=== PATIENT | male | born 1965 | race Caucasian/White ===

== ENCOUNTER 2018-12-17 15:56 | Emergency (ER) | payer BC, SELFPAY ==
--- OUTSIDE RECORDS SUMMARY | 2018-12-17 15:58 | XMS REPORT | Clinical Summary ---
:1965 Author Organization [facility] Address [address] [place] [address] Care Team Providers Name Role Phone Mayra Ramirez Primary Care Provider Allergies No Known Allergies Medications Medication Sig Dispensed Refills Start Date End Date Status lisinopril Take 40 mg by 0 Active (PRINIVIL,ZESTRIL) 40 MG mouth daily. tablet VITAMIN A ORAL Take 25,000 0 Active Units by mouth daily. OMEGA-3S/DHA/EPA/FISH Take 1,000 mg by 0 Active OIL (OMEGA 3 ORAL) mouth daily. ASCORBATE CALCIUM Take 2,000 mg by 0 Active (VITAMIN C ORAL) mouth daily. MULTIVITAMIN ORAL Take 15 mL by 0 Active mouth. INSULIN SUBCUTANEOUS Inject 8 Units 0 Active PUMP, NOVOLOG, 100 under the skin UNIT/ML INSULIN PUMP continuously. INFUSION (NovoLOG) carvedilol (COREG) 12.5 Take 12.5 mg by 0 Active MG tablet mouth 2 (two) times a day with meals. zolpidem (AMBIEN) 10 mg Take 10 mg by 0 Active tablet mouth nightly as needed for sleep. DULoxetine (CYMBALTA) 60 Take 60 mg by 0 Active MG capsule mouth 2 (two) times a day. TiZANidine (ZANAFLEX) 6 0 05/22/2016 Active MG capsule sertraline (ZOLOFT) 100 0 06/29/2016 Active MG tablet gabapentin (NEURONTIN) 0 06/29/2016 Active 300 mg capsule cyclobenzaprine 0 06/29/2016 Active (FLEXERIL) 10 mg tablet chlordiazepoxide-clidini 0 04/11/2016 Active um (LIBRAX) 5-2.5 mg per capsule Active Problems No known active problems Social History Tobacco Use Types Packs/Day Years Used Date Never Smoker Smokeless Tobacco: Never Used Alcohol Use Drinks/Week oz/Week Comments No Sex Assigned at Date Recorded Not on file Job Start Date Occupation Industry Not on file Not on file Not on file Travel History Travel Start Travel End No recent travel history available. Last Filed Vital Signs Not on file Plan of Treatment Health Maintenance Due Date Last Done Comments COLONOSCOPY SCREENING 2017 SHINGLES VACCINES (#1) 2017 INFLUENZA VACCINE 01/23/2019 Results Not on fileafter 12/16/2017 (Home) [place] [address] Advance Directives Patient has advance care planning documents on file. For more information, please contact:Maynor Jefferson[address] [place] [address]
[2018-12-17 16:54] LABS: Absolute Lymphocytes (CBC) 1.1 K/uL (0.7-4.9); Basophils % 0.6 % (0-1.3); Eosinophils % 3.6 % (0-4.4); Hematocrit 37.2 % (39.6-49.0); MPV 7.6 fL (7.6-11.3); Monocytes % 9.8 % (3.3-12.3); RBC Red Blood Cell Count 4.37 M/uL (4.33-5.43)
[2018-12-17] MEDS ORDERED: NA CHLORIDE 0.9% 1,000 ML ONE (17:00)
--- NOTE | 2018-12-17 17:08 | RAD REPORT ---
EXAM DESCRIPTION: CT - CTHCSPWOC - 12/17/2018 4:57 pm CLINICAL HISTORY: Trauma, head and neck injury. fall, head/face injury COMPARISON: No comparisons TECHNIQUE: Axial 5 mm thick images of the head were obtained. Axial 2 mm thick images of the cervical spine were obtained with sagittal and coronal reconstruction images generated and reviewed. All CT scans are performed using dose optimization technique as appropriate and may include automated exposure control or mA/KV adjustment according to patient size. FINDINGS: CT HEAD WITHOUT CONTRAST: No acute hemorrhage, hydrocephalus or extra-axial collection is identified.No areas of brain edema or midline shift. Multifocal mild mucoperiosteal thickening is seen involving the paranasal sinuses.The calvarium is in tact. CT CERVICAL SPINE WITHOUT CONTRAST: No fracture or subluxation.Mild lower cervical spondylosis.No prevertebral soft tissues swelling is i dentified. IMPRESSION: No acute intracranial or cervical spine findings.
--- NOTE | 2018-12-17 17:11 | RAD REPORT ---
EXAM DESCRIPTION: CT - CTFB CLINICAL HISTORY: FACIAL PAIN Trauma, facial pain and swelling. COMPARISON: No comparisons TECHNIQUE: Axial 2 mm thick images of the face were obtained with sagittal and coronal reconstructio n images. All CT scans are performed using dose optimization technique as appropriate and may include automated exposure control or mA/KV adjustment according to patient size. FINDINGS: Mild acute nasal bone fractures are present bilaterally.No additional facial prone fractur e is seen.The mandible is intact. The globes and orbital contents are grossly unremarkable.Mild mucoperiosteal thickening of the parana ludy sinuses present. IMPRESSION: Mild acute nasal bone fractures.
[2018-12-17 17:13] LABS: BUN Blood Urea Nitrogen 19 mg/dL (7-18); Bicarbonate 27 mmol/L (21-32); Glucose Level 345 mg/dL (74-106); Potassium 5.1 mmol/L (3.5-5.1); Sodium Level 137 mmol/L (136-145)
--- NOTE | 2018-12-17 17:16 | RAD REPORT ---
EXAM DESCRIPTION: RAD - Shoulder Right 2 View - 12/17/2018 5:10 pm CLINICAL HISTORY: fall;Pain COMPARISON: No comparisons FINDINGS: No acute fracture or dislocation is appreciated. An old Hill-Sachs deformity is suspected.
--- NOTE | 2018-12-17 17:44 | EDPHYS ---
Physician Documentation [facility] Name: Wilberto Liriano Age: 53 yrs Sex: Male : 1965 Arrival Date: 12/17/2018 Time: 16:02 Bed 16 Private MD: ED Physician Adi Rehman HPI: 12/17 16:37 This 53 yrs old Male presents to ER via EMS with complaints of Fall Injury. rn 16:37 Details of fall: The patient fell from an upright position, while walking. Onset: The rn symptoms/episode began/occurred just prior to arrival. Associated injuries: The patient sustained injury to the head. Severity of symptoms: At their worst the symptoms were mild, in the emergency department the symptoms are unchanged. The patient has experienced similar episodes in the past. Reports falls a lot, mother thinks is because he takes too much medication. Patient with chronic back pain and sciatica, takes muscle relaxers, gabapentin, seroquel, and tylenol#3. Reports today walking, fell forward, hit face/head, no LOC, remembers all events, + generalized weakness. Reports facial pain and right shoulder pain. . Historical: - Allergies: 15:51 No Known Allergies; rb1 - Home Meds: 15:51 Novalog 5-10 ml per day [Active]; valsartan 160 mg oral tab 1 tab once daily [Active]; rb1 ferrous gluconate 324 mg (38 mg iron) Oral tab daily [Active]; carvedilol 25 mg oral tab 1 tab 2 times per day [Active]; montelukast 10 mg oral tab 1 tab once daily [Active]; 15:51 tizanidine 4 mg oral tab 1 tab twice a day [Active]; gabapentin 600 mg oral tab 1 tab rb1 twice a day [Active]; quetiapine 400 mg oral tab 2 tab once daily [Active]; - PMHx: 16:10 Diabetes - IDDM; Hypertension; pancreas problems; rb1 - PSHx: 16:10 Cholecystectomy; Gastric Bypass; rb1 - Immunization history:: Adult Immunizations up to date. - Social history:: Smoking status: Patient/guardian denies using tobacco. - Ebola Screening: : Patient negative for fever greater than or equal to 101.5 degrees Fahrenheit, and additional compatible Ebola Virus Disease symptoms. - Family history:: not pertinent. - Hospitalizations: : No recent hospitalization is reported. ROS: 16:39 Constitutional: Negative for fever, chills, and weight loss, Eyes: Negative for injury, rn pain, redness, and discharge, Cardiovascular: Negative for chest pain, palpitations, and edema, Respiratory: Negative for shortness of breath, cough, wheezing, and pleuritic chest pain, Abdomen/GI: Negative for abdominal pain, nausea, vomiting, diarrhea, and constipation, MS/Extremity: Negative for injury and deformity, Skin: Negative for injury, rash, and discoloration, Neuro: Negative for headache, weakness, numbness, tingling, and seizure. Exam: 16:39 Constitutional: This is a well developed, well nourished patient who is awake, alert, rn and in no acute distress. Head/Face: + nasal abrasion Eyes: Bilateral pupils constricted ENT: No oral trauma, no active nosebleed Neck: In ccollar, no midline tenderness Chest/axilla: Normal chest wall appearance and motion. Nontender with no deformity. No lesions are appreciated. Cardiovascular: Regular rate and rhythm, No pulse deficits. Respiratory: Lungs have equal breath sounds bilaterally, clear to auscultation. No increased work of breathing, no retractions or nasal flaring. Abdomen/GI: soft, non-tender Back: No spinal tenderness. No costovertebral tenderness. Full range of motion. Skin: Warm, dry, no evidence of cellulitis. MS/ Extremity: Pulses equal, no cyanosis. Neurovascular intact. Full, normal range of motion. Equal circumference. Neuro: Awake and alert, GCS 15, oriented to person, place, time, and situation. Cranial nerves II-XII grossly intact. Motor strength 4/5 in all extremities. Sensory grossly intact. Vital Signs: 15:51 BP 128 / 82; Pulse 65; Resp 19; Temp 98.8(O); Pulse Ox 97% on R/A; Weight 79.38 kg (R); rb1 Height 5 ft. 3 in. (160.02 cm) (R); Pain 10/10; 16:45 BP 132 / 71; Pulse 66; Resp 20; Temp 98.7(O); Pulse Ox 98% on R/A; Pain 10/10; rb1 17:45 BP 121 / 74; Pulse 62; Resp 17; Temp 98.6(O); Pulse Ox 97% on R/A; Pain 10/10; rb1 18:29 BP 125 / 75; Pulse 63; Resp 19; Temp 98.1(O); Pulse Ox 100% on R/A; Pain 10/10; rb1 15:51 Body Mass Index 31.00 (79.38 kg, 160.02 cm) rb1 Sanborn Coma Score: 15:51 Eye Response: spontaneous(4). Verbal Response: oriented(5). Motor Response: obeys rb1 commands(6). Total: 15. Trauma Score (Adult): 15:51 Eye Response: spontaneous(1); Verbal Response: oriented(1); Motor Response: obeys rb1 commands(2); Systolic BP: > 89 mm Hg(4); Respiratory Rate: 10 to 29 per min(4); Sanborn Score: 15; Trauma Score: 12 MDM: 16:20 Patient medically screened. rn 17:41 Differential diagnosis: abrasion, closed head injury, contusion, fracture, sprain, rn strain. Data reviewed: vital signs, nurses notes, lab test result(s), radiologic studies, CT scan, plain films, and as a result, I will discharge patient. Counseling: I had a detailed discussion with the patient and/or guardian regarding: the historical points, exam findings, and any diagnostic results supporting the discharge/admit diagnosis, lab results, radiology results, the need for outpatient follow up, to return to the emergency department if symptoms worsen or persist or if there are any questions or concerns that arise at home. Response to treatment: the patient's symptoms have markedly improved after treatment, and as a result, I will discharge patient. ED course: Patient much more alert, negative ct head/cspine, + nasal bone fracture, will dc home with ENT f/u, given fluids for dehydration, neg ketones, no AG. Talked to patient and family member regarding possible over medication due to recurrent falls, chronic pain, and multiple sedative medications.. 12/17 16:32 Order name: CBC with Diff; Complete Time: 17:09 rn 12/17 16:32 Order name: Basic Metabolic Panel; Complete Time: 17:41 rn 12/17 16:32 Order name: CT Head C Spine; Complete Time: 17:12 rn 12/17 16:33 Order name: Ketone, Serum; Complete Time: 17:41 rn 12/17 17:21 Order name: Glucose, Ancillary Testing; Complete Time: 17:26 EDMS 12/17 16:32 Order name: IV Start; Complete Time: 16:47 rn 12/17 16:32 Order name: CT Facial Bones W/O Con; Complete Time: 17:26 rn 12/17 16:32 Order name: XRAY Shoulder RIGHT 2 view; Complete Time: 17:26 rn 12/17 16:32 Order name: EKG; Complete Time: 16:33 rn 12/17 16:32 Order name: EKG - Nurse/Tech; Complete Time: 17:50 rn 12/17 16:33 Order name: Glucose Level; Complete Time: 17:50 rn Administered Medications: 17:00 Drug: NS 0.9% 1000 ml Route: IV; Rate: 1000 ml; Site: left antecubital; rb1 18:30 Follow up: IV Status: Completed infusion rb1 Point of Care Testing: Blood Glucose: 17:54 Blood Glucose: 294 mg/dL; mh5 Ranges: Critical Glucose Levels:Adult <50 mg/dl or >400 mg/dl <40 mg/dl or >180 mg/dl Disposition: 12/17/18 17:43 Discharged to Home. Impression: Fracture of nasal bones, Hyperglycemia, unspecified, Dehydration, Superficial injury of head. - Condition is Stable. - Discharge Instructions: Dehydration, Adult, Head Injury, Adult, Hyperglycemia, Nasal Fracture. - Medication Reconciliation Form, Thank You Letter, Antibiotic Education, Prescription Opioid Use, Work release form form. - Follow up: Rosaura Ott; When: As needed; Reason: Recheck today's complaints, Re-evaluation by your physician. - Problem is new. - Symptoms have improved. Signatures: Dispatcher [employer] [facility] Adi Rehman MD MD rn Barber, Rebecca, RN RN rb1 Corrections: (The following items were deleted from the chart) 16:39 16:37 Reports falls a lot, mother thinks is because he takes too much medication. rn Patient with chronic back pain and sciatica, takes muscle relaxers, gabapentin, seroquel, and tylenol#3. . rn 16:45 16:39 Constitutional: This is a well developed, well nourished patient who is awake, rn alert, and in no acute distress. Head/Face: + nasal abrasion Eyes: Bilateral pupils constricted ENT: No oral trauma, no active nosebleed Neck: In ccollar, no midline tenderness Chest/axilla: Normal chest wall appearance and motion. Nontender with no deformity. No lesions are appreciated. Cardiovascular: Regular rate and rhythm, No pulse deficits. Respiratory: Lungs have equal breath sounds bilaterally, clear to auscultation. No increased work of breathing, no retractions or nasal flaring. Abdomen/GI: soft, non-tender Skin: Warm, dry, no evidence of cellulitis. MS/ Extremity: Pulses equal, no cyanosis. Neurovascular intact. Full, normal range of motion. Equal circumference. Neuro: Awake and alert, GCS 15, oriented to person, place, time, and situation. Cranial nerves II-XII grossly intact. Motor strength 4/5 in all extremities. Sensory grossly intact. rn 17:40 16:39 ACETAMINOPHEN+C.LAB.BRZ ordered. EDCT EDMS 18:37 17:43 12/17/2018 17:43 Discharged to Home. Impression: Fracture of nasal bones; rb1 Hyperglycemia, unspecified; Dehydration; Superficial injury of head. Condition is Stable. Discharge Instructions: Dehydration, Adult, Head Injury, Adult, Hyperglycemia, Nasal Fracture. Forms are Medication Reconciliation Form, Thank You Letter, Antibiotic Education, Prescription Opioid Use. Follow up: Rosaura Ott; When: As needed; Reason: Recheck today's complaints, Re-evaluation by your physician. Problem is new. Symptoms have improved. rn
--- NOTE | 2018-12-17 17:44 | ER ---
Nurse's Notes [facility] Name: Wilberto Liriano Age: 53 yrs Sex: Male : 1965 Arrival Date: 12/17/2018 Time: 16:02 Bed 16 Private MD: Diagnosis: Fracture of nasal bones;Hyperglycemia, unspecified;Dehydration;Superficial injury of head Presentation: 12/17 15:51 Presenting complaint: EMS states: Pt. fell from a standing position landing in a prone rb1 position. Denies LOC. Bloody nose when EMS arrived. Pt. reports being hypotensive. C/o neck, face, and low back pain. BS 463, his normal is in the 200's. When EMS arrived his systolic BP was in the 100's. 15:51 Care prior to arrival: Cervical collar in place. Placed on backboard. Mechanism of rb1 Injury: Fall from standing position. 15:51 Acuity: PAIGE 3 rb1 15:51 Method Of Arrival: EMS: [place] [id number] 15:51 Transition of care: patient was not received from another setting of care. Onset of rb1 symptoms was December 17, 2018. Risk Assessment: Do you want to hurt yourself or someone else? Patient reports no desire to harm self or others. Initial Sepsis Screen: Does the patient meet any 2 criteria? No. Patient's initial sepsis screen is negative. Does the patient have a suspected source of infection? No. Patient's initial sepsis screen is negative. Historical: - Allergies: 15:51 No Known Allergies; rb1 - Home Meds: 15:51 Novalog 5-10 ml per day [Active]; valsartan 160 mg oral tab 1 tab once daily [Active]; rb1 ferrous gluconate 324 mg (38 mg iron) Oral tab daily [Active]; carvedilol 25 mg oral tab 1 tab 2 times per day [Active]; montelukast 10 mg oral tab 1 tab once daily [Active]; 15:51 tizanidine 4 mg oral tab 1 tab twice a day [Active]; gabapentin 600 mg oral tab 1 tab rb1 twice a day [Active]; quetiapine 400 mg oral tab 2 tab once daily [Active]; - PMHx: 16:10 Diabetes - IDDM; Hypertension; pancreas problems; rb1 - PSHx: 16:10 Cholecystectomy; Gastric Bypass; rb1 - Immunization history:: Adult Immunizations up to date. - Social history:: Smoking status: Patient/guardian denies using tobacco. - Ebola Screening: : Patient negative for fever greater than or equal to 101.5 degrees Fahrenheit, and additional compatible Ebola Virus Disease symptoms. - Family history:: not pertinent. - Hospitalizations: : No recent hospitalization is reported. Screenin:51 Abuse screen: Denies threats or abuse. Tuberculosis screening: No symptoms or risk rb1 factors identified. 15:51 Nutritional screening: No deficits noted. Fall Risk None identified. rb1 Assessment: 15:51 General: Appears in no apparent distress. Behavior is calm, cooperative. Pain: rb1 Complains of pain in Neck, face, and low back Pain currently is 10 out of 10 on a pain scale. Pain began 30 min ago. Neuro: Level of Consciousness is awake, alert, obeys commands, Oriented to person, place, time, situation. EENT: Nares no bleeding noted at this time. Cardiovascular: Capillary refill < 3 seconds is brisk in bilateral fingers. Respiratory: Airway is patent Respiratory effort is even, unlabored, Respiratory pattern is regular, symmetrical. Derm: Skin is pink, warm \T\ dry. 16:48 Reassessment: Patient appears in no apparent distress at this time. No changes from rb1 previously documented assessment. Patient is alert, oriented x 3, equal unlabored respirations, skin warm/dry/pink. Pt. went to CT. 17:33 Reassessment: Received verbal order from Dr. Rehman to DC the C-collar. rb1 17:44 Reassessment: Patient appears in no apparent distress at this time. No changes from rb1 previously documented assessment. 18:00 Reassessment: Discharge pending due to IV fluids infusing. rb1 Vital Signs: 15:51 BP 128 / 82; Pulse 65; Resp 19; Temp 98.8(O); Pulse Ox 97% on R/A; Weight 79.38 kg (R); rb1 Height 5 ft. 3 in. (160.02 cm) (R); Pain 10/10; 16:45 BP 132 / 71; Pulse 66; Resp 20; Temp 98.7(O); Pulse Ox 98% on R/A; Pain 10/10; rb1 17:45 BP 121 / 74; Pulse 62; Resp 17; Temp 98.6(O); Pulse Ox 97% on R/A; Pain 10/10; rb1 18:29 BP 125 / 75; Pulse 63; Resp 19; Temp 98.1(O); Pulse Ox 100% on R/A; Pain 10/10; rb1 15:51 Body Mass Index 31.00 (79.38 kg, 160.02 cm) rb1 Abel Coma Score: 15:51 Eye Response: spontaneous(4). Verbal Response: oriented(5). Motor Response: obeys rb1 commands(6). Total: 15. Trauma Score (Adult): 15:51 Eye Response: spontaneous(1); Verbal Response: oriented(1); Motor Response: obeys rb1 commands(2); Systolic BP: > 89 mm Hg(4); Respiratory Rate: 10 to 29 per min(4); [place] Score: 15; Trauma Score: 12 ED Course: 15:51 Patient has correct armband on for positive identification. Bed in low position. Call rb1 light in reach. Side rails up X2. 15:51 Arm band placed on right wrist. rb1 15:51 Patient maintains SpO2 saturation greater than 95% on room air. rb1 16:02 Patient arrived in ED. rb1 16:14 Olivia Alvarez, RN is Primary Nurse. rb1 16:18 Triage completed. rb1 16:20 Adi Rehman MD is Attending Physician. rn 16:[address] via stretcher. em2 16:47 Initial lab(s) drawn, by me, sent to lab. Inserted saline lock: 18 gauge in left ch antecubital area, using aseptic technique. Blood collected. 16:58 CT Head C Spine In Process Unspecified. EDMS 16:58 CT Facial Bones W/O Con In Process Unspecified. EDMS 17:11 XRAY Shoulder RIGHT 2 view In Process Unspecified. EDMS 17:43 Rosaura Ott MD is Referral Physician. rn 18:25 No provider procedures requiring assistance completed. IV discontinued, intact, rb1 bleeding controlled, No redness/swelling at site. Pressure dressing applied. Administered Medications: 17:00 Drug: NS 0.9% 1000 ml Route: IV; Rate: 1000 ml; Site: left antecubital; rb1 18:30 Follow up: IV Status: Completed infusion rb1 Point of Care Testing: Blood Glucose: 17:54 Blood Glucose: 294 mg/dL; mh5 Ranges: Outcome: 17:43 Discharge ordered by . rn 18:35 Discharged to home via wheelchair. rb1 18:35 Condition: stable 18:35 Discharge instructions given to patient, Instructed on discharge instructions, follow rb1 up and referral plans. Demonstrated understanding of instructions, follow-up care, Prescriptions given X NONE 18:37 Patient left the ED. rb1 Signatures: Dispatcher [employer] EDCassidy Villareal RN RN Adi Rehman MD MD rn Montes, Enrique [facility] Olivia Alvarez RN RN rb1 Cyn Pierce [facility] Corrections: (The following items were deleted from the chart) 16:23 15:51 Care prior to arrival: None. rb1 rb1
--- NOTE | 2018-12-18 07:54 | EKG ---
Test Date: 2018-12-17 Test Time: 17:48:02 Political Researcher: ZENA MEASUREMENT RESULTS: Intervals: Rate: 61 AL: 180 QRSD: 96 QT: 390 QTc: 392 [place]: P: 61 AL: 180 QRS: 28 T: 48 INTERPRETIVE STATEMENTS: Normal sinus rhythm Normal ECG Compared to ECG 04/12/2017 08:17:50 No significant changes Electronically Signed On 12-18-18 07:54:02 CDT by Victorino Peace
== END 2018-12-17 18:37 | disposition home or self-care (01) ==
LOC: ER 15:56
DX: S02.2XXA Fracture of nasal bones, initial encounter for closed fracture (principal); E86.0 Dehydration; E11.65 Type 2 diabetes mellitus with hyperglycemia; I10 Essential (primary) hypertension; W19.XXXA Unspecified fall, initial encounter; Y93.01 Activity, walking, marching and hiking; Y92.9 Unspecified place or not applicable
CPT/HCPCS: 36415; 70450; 70486; 72125; 76377; 80048; 82010; 82962; 85025; 93005; 96360; 99285; J7030

== ENCOUNTER 2019-03-19 14:40 | Inpatient (IN) | payer SELFPAY ==
[2019-03-19] MEDS ORDERED: NA CHLORIDE 0.9% 1,000 ML ONE ×2 (14:55→18:33)
[2019-03-19] MEDS ORDERED: NALOXONE 0.4 MG/ML VIAL ONE (14:55)
[2019-03-19] MEDS ORDERED: ACETAMINOPHEN 650MG/RECT SUPP PR ONE ×2 (14:55→19:55)
[2019-03-19] MEDS ORDERED: INSULIN -REGULAR HUMAN 50 UNIT/0.5 ML ML ONE ×2 (15:23→16:55)
[2019-03-19] MEDS ORDERED: ASPIRIN 600 MG/SUPP PR ONE (15:23)
[2019-03-19 15:26] LABS: Arterial Blood Carboxyhemoglob 0.3 % (0-1.5); Blood Gas Oxyhemoglobin 93.4 % (94-97); Blood O2 Saturation 94.4 % (92-98.5)
--- NOTE | 2019-03-19 15:29 | RAD REPORT ---
EXAM DESCRIPTION: CT - Head Brain Wo Cont - 03/19/2019 3:12 pm CLINICAL HISTORY: Alteration of awareness/confusion COMPARISON: 2017 TECHNIQUE: Computed axial tomography of the head was obtained. IV contrast was not requested. All CT scans are performed using dose optimization technique as appropriate and may include automated exposure control or mA/KV adjustment according to patient size. FINDINGS: An intracranial bleed is not seen . The ventricles are normal in caliber. No extra-axial fluid collection is noted. Fluid within the sinuses/ mastoids is not seen. IMPRESSION: No acute intracranial abnormality is seen. If patient's symptoms persist MRI of the bra in would be recommended.
[2019-03-19 15:34] LABS: Absolute Lymphocytes (CBC) 0.3 K/uL (0.7-4.9); Basophils % 0.4 % (0-1.3); Hematocrit 43.4 % (39.6-49.0); MPV 8.3 fL (7.6-11.3); RBC Red Blood Cell Count 4.78 M/uL (4.33-5.43)
[2019-03-19 15:37] LABS: Blood Morphology Comment NOT SEEN (NOT SEEN); Platelet Estimate ADEQ; Urine White Blood Cell Casts OK
--- NOTE | 2019-03-19 16:00 | RAD REPORT ---
EXAM DESCRIPTION: Shantal Single View03/19/2019 3:42 pm CLINICAL HISTORY: fever COMPARISON: 2016 FINDINGS: The lungs appear clear of acute infiltrate. The heart is normal size IMPRESSION: No acute abnormalities displayed
[2019-03-19 16:02] LABS: Bilirubin Direct 0.3 mg/dL (0-0.2); Bilirubin Total 0.5 mg/dL (0.2-1.0); C-Reactive Protein 75.8 mg/L (<3.00); CKMB Creatine Kinase MB 9.9 ng/mL (0.3-3.6); Protein, Total 8.9 g/dL (6.4-8.2); Troponin (Emerg Dept Use Only) 0.15 ng/mL (0.0-0.045)
[2019-03-19 16:10] LABS: Potassium 5.7 mmol/L (3.5-5.1)
[2019-03-19 16:27] LABS: Barbiturates NEGATIVE (NEGATIVE); Benzodiazepines NEGATIVE (NEGATIVE); Cocaine NEGATIVE (NEGATIVE); METHAMPHETAM NEGATIVE (NEGATIVE); Methadone NEGATIVE (NEGATIVE); Opiates POSITIVE (NEGATIVE); Phencyclidine NEGATIVE (NEGATIVE); THC Cannibis NEGATIVE (NEGATIVE)
[2019-03-19] MEDS ORDERED: ALBUTEROL 2.5 MG/3 ML NEB SOL ONE (16:38)
[2019-03-19] MEDS ORDERED: VANCOMYCIN/NS 1 gm 1 GM/250 ML BAG IV ONE (17:00)
--- NOTE | 2019-03-19 17:25 | RAD REPORT ---
EXAM DESCRIPTION: CT - Stone Protocol - 03/19/2019 5:09 pm CLINICAL HISTORY: Abdominal pain. COMPARISON: None. TECHNIQUE: Computed axial tomography of the abdomen pelvis was obtained without oral or IV contrast. Lack of IV and oral contrast limits evaluation of solid organs, bowel, and vessels. Coronal reformat altagracia images were obtained and reviewed. All CT scans are performed using dose optimization technique as appropriate and may include automated exposure control or mA/KV adjustment according to patient size. FINDINGS: A renal calculus is not seen. An ureteral calculus is not noted. A bladder calculus is not present. Air within the bladder The liver, spleen,and adrenals appear grossly normal. Atrophic pancreas There is no evidence of diverticulitis. The appendix appears normal Postsurgical changes involve the lumbar spine. Postsurgical changes involve stomach IMPRESSION: Negative for a genitourinary calculus Air within the bladder may be secondary to recent instrumentation. Infection can also result in this appearance
--- NOTE | 2019-03-19 17:55 | RAD REPORT ---
EXAM DESCRIPTION: MRI - Lumbar Spine Wo Con - 03/19/2019 5:39 pm CLINICAL HISTORY: Back pain. Back surgery January 2019 COMPARISON: None. TECHNIQUE: Sagittal T1, T2 and STIR weighted sequences were obtained. Axial T1 and T2 sequences were obtained through the lumbar disc levels. FINDINGS: L1-2 and L2-3 are unremarkable Mild spondylosis L3-4 Posterior fusion L4 and L5 by pedicular rods united by screws and bone plug. This obscures detail angie ewhat. Mild anterior subluxation L4 and L5. Disc bulge and osteophytes present. An epidural mass is n ot seen although evaluation is somewhat limited secondary to lack of contrast administration and hard becerril. Central spinal stenosis is not present. Abnormal signal involving the vertebral endplates of L4 and L5 nonspecific but probably degenerative nature Mild spondylosis L5-S1 IMPRESSION: Posterior fusion L4 and L5. Mild anterior subluxation L4 on L5. Mild spondylosis
[2019-03-19 19:01] LABS: Protime INR 0.85
--- NOTE | 2019-03-19 19:44 | EDPHYS ---
Physician Documentation [facility] Name: Wilberto Liriano Age: 54 yrs Sex: Male : 1965 Arrival Date: 03/19/2019 Time: 14:44 Bed 6 Private MD: ED Physician Tobin Fernandez HPI: 03/19 15:03 This 54 yrs old Male presents to ER via Unassigned with complaints of ams, snw hyperglycemia, fever. 15:03 The patient presents with decreased mental status. Onset: The symptoms/episode snw began/occurred suddenly, 3 day(s) ago, and became persistent. Possible causes: sepsis, the patient has had a history of a fever. Associated signs and symptoms: Pertinent positives: weakness, AMS. Current symptoms: In the emergency department the patient's symptoms are unchanged from the initial presentation. Patient's baseline: Neuro: alert and fully oriented, Motor: no deficits, Ambulation: walks without assistance. It is unknown whether or not the patient has had similar symptoms in the past. The patient has not recently seen a physician. s/s began 72 hours ago. Historical: - Allergies: 17:11 No Known Allergies; sv - Home Meds: 17:11 Novalog 5-10 ml per day [Active]; Trintellix 20 mg oral tab 1 tab once daily [Active]; sv ferrous gluconate 324 mg (38 mg iron) Oral tab daily [Active]; carvedilol 25 mg Oral tab 1 tab 2 times per day [Active]; montelukast 10 mg Oral tab 1 tab once daily [Active]; tizanidine 4 mg Oral tab 1 tab nightly [Active]; gabapentin 600 mg Oral tab 1 tab twice a day [Active]; quetiapine 400 mg Oral tab 2 tab once daily [Active]; tamsulosin 0.4 mg oral cp24 1 cap once daily [Active]; hydrocodone-acetaminophen 10-325 mg Oral tab 1 tab every 6 hours [Active]; methocarbamol 500 mg Oral tab 2 tabs twice a day [Active]; - PMHx: 17:11 Diabetes - IDDM; Hypertension; pancreas problems; sv - PSHx: 17:11 Cholecystectomy; Gastric Bypass; sv - Immunization history:: Adult Immunizations unknown. - Social history:: Smoking status: unknown. - Ebola Screening: : Unable to complete screening because patient does not understand, patient is disoriented, . ROS: 15:03 Unable to obtain ROS due to altered mental status. snw Exam: 15:03 Head/Face: Normocephalic, atraumatic. Eyes: Pupils equal round and reactive to light, snw extra-ocular motions intact. Lids and lashes normal. Conjunctiva and sclera are non-icteric and not injected. Cornea within normal limits. Periorbital areas with no swelling, redness, or edema. 15:03 Neck: Trachea midline, no thyromegaly or masses palpated, and no cervical lymphadenopathy. Supple, full range of motion without nuchal rigidity, or vertebral point tenderness. No Meningismus. Chest/axilla: Normal chest wall appearance and motion. Nontender with no deformity. No lesions are appreciated. 15:03 Respiratory: Lungs have equal breath sounds bilaterally, clear to auscultation and percussion. No rales, rhonchi or wheezes noted. No increased work of breathing, no retractions or nasal flaring. Abdomen/GI: Soft, non-tender, with normal bowel sounds. No distension or tympany. No guarding or rebound. No evidence of tenderness throughout. Back: No spinal tenderness. No costovertebral tenderness. Full range of motion. MS/ Extremity: Pulses equal, no cyanosis. Neurovascular intact. Full, normal range of motion. 15:03 Constitutional: The patient appears listless, obviously ill, pale, mumbling without forming words, maintaining SpO2 15:03 ENT: Mouth: Oral mucosa: dry, Voice: is muffled. 15:03 Cardiovascular: Rate: tachycardic, Heart sounds: normal, Edema: is not appreciated. 15:03 Skin: Appearance: Color: pale, Temperature: warm, Moisture: dry, old scarring, will tx with iv abx for possible sepsis source. 15:03 Neuro: Orientation: unable to test, Mentation: responsive to pain, Memory: unable to test, seizure activity, is not displayed by the patient, GCS 10/15. Vital Signs: 14:40 BP 147 / 133; Pulse 109; Resp 28; Temp 101.9(A); Pulse Ox 99% ; sv 15:00 BP 132 / 94; Pulse 108; Resp 16; Pulse Ox 99% on R/A; sv 15:30 BP 132 / 94; Pulse 108; Resp 16; Pulse Ox 99% ; sv 16:00 BP 144 / 84; Pulse 110; Resp 34; Pulse Ox 99% on R/A; sv 16:30 BP 130 / 89; Pulse 106; Resp 31; Pulse Ox 98% on R/A; sv 16:45 BP 145 / 92; Pulse 105; Resp 24; Pulse Ox 100% on R/A; sv 17:48 BP 117 / 90; Pulse 108; Resp 30; Pulse Ox 100% ; sv 18:15 BP 143 / 87; Pulse 108; Resp 33; Pulse Ox 100% ; sv 18:32 BP 146 / 89; Pulse 109; Resp 32; Pulse Ox 99% on R/A; jb1 18:40 Temp 101.4(C); sv 19:00 BP 132 / 88; Pulse 102 MON; Resp 24; Temp 101(C); Pulse Ox 99% on R/A; sv 19:29 BP 163 / 91; Pulse 103; Resp 26; Temp 100.9(C); Pulse Ox 99% ; tl1 21:15 BP 149 / 95; Pulse 26; Resp 26 S; Temp 101(C); Pulse Ox 99% on R/A; bb 19:00 Sinus tachycardia sv MDM: 14:49 Patient medically screened. snw 19:35 Data reviewed: vital signs, nurses notes. Data interpreted: Pulse oximetry: on room air snw is 99 %. Interpretation: normal. Counseling: I had a detailed discussion with the patient and/or guardian regarding: the historical points, exam findings, and any diagnostic results supporting the discharge/admit diagnosis, lab results, radiology results, the need for further work-up and treatment in the hospital. Physician consultation: Adrian Eldridge MD was called at 19:36, was contacted at 19:36, regarding admission, to the ICU, patient's condition. 03/19 14:53 Order name: Glucose, Ancillary Testing; Complete Time: 14:58 EDMS 03/19 14:57 Order name: T\T\S; Complete Time: 16:59 snw 03/19 14:57 Order name: C-Reactive Protein; Complete Time: 16:18 snw 03/19 14:57 Order name: Urine Culture snw 03/19 14:57 Order name: ABG; Complete Time: 15:29 snw 03/19 14:57 Order name: Basic Metabolic Panel; Complete Time: 16:18 snw 03/19 14:57 Order name: Blood Culture Adult (2) w 03/19 14:57 Order name: CBC with Diff; Complete Time: 15:40 snw 03/19 14:57 Order name: Ckmb; Complete Time: 16:18 snw 03/19 14:57 Order name: CPK; Complete Time: 16:18 snw 03/19 14:57 Order name: Lactate; Complete Time: 16:18 snw 03/19 14:57 Order name: LFT's; Complete Time: 16:18 snw 03/19 14:57 Order name: Lipase; Complete Time: 16:18 snw 03/19 14:57 Order name: Procalcitonin; Complete Time: 16:43 snw 03/19 14:57 Order name: Protime (+inr); Complete Time: 19:18 snw 03/19 14:57 Order name: Ptt, Activated; Complete Time: 19:18 snw 03/19 14:57 Order name: Troponin (emerg Dept Use Only); Complete Time: 16:18 w 03/19 14:57 Order name: Urine Microscopic Only w 03/19 14:57 Order name: AMMONIA; Complete Time: 19:26 w 03/19 14:57 Order name: Flu; Complete Time: 17:20 w 03/19 15:38 Order name: CBC Smear Scan; Complete Time: 15:40 EDMS 03/19 16:00 Order name: UDS; Complete Time: 16:30 snw 03/19 16:02 Order name: Glucose; Complete Time: 16:59 sv 03/19 16:04 Order name: CSF Bacterial Antigens (tube 1) 03/19 16:04 Order name: Csf Culture [facility] 03/19 16:04 Order name: Fluid Cell Count,Body 03/19 16:04 Order name: Spinal Fluid Profile 03/19 18:40 Order name: Glucose, Ancillary Testing; Complete Time: 18:43 EDMS 03/19 18:40 Order name: Glucose, Ancillary Testing; Complete Time: 18:43 EDMS 03/19 19:26 Order name: Chem 7 snw 03/19 14:57 Order name: Cath; Complete Time: 15:13 snw 03/19 14:57 Order name: Chest Single View XRAY; Complete Time: 16:41 snw 03/19 14:57 Order name: Accucheck; Complete Time: 15:12 snw 03/19 14:57 Order name: Cardiac monitoring; Complete Time: 15:12 snw 03/19 14:57 Order name: EKG - Nurse/Tech; Complete Time: 15:12 snw 03/19 14:57 Order name: IV Saline Lock - Large Bore; Complete Time: 15:12 snw 03/19 14:57 Order name: Labs collected and sent; Complete Time: 15:12 snw 03/19 14:57 Order name: O2 Per Protocol; Complete Time: 15:12 snw 03/19 14:57 Order name: O2 Sat Monitoring; Complete Time: 15:12 snw 03/19 14:57 Order name: Urine Dipstick-Ancillary (obtain specimen); Complete Time: 15:50 snw 03/19 14:57 Order name: CT Head Brain wo Cont; Complete Time: 15:40 snw 03/19 15:22 Order name: EKG Electrocardiogram; Complete Time: 15:41 EDWI 03/19 16:23 Order name: MRI Lumbar Spine wo Con; Complete Time: 18:12 snw 03/19 16:36 Order name: CT Stone Protocol; Complete Time: 17:37 snw 03/19 20:00 Order name: CONS Physician Consult EDWI 03/19 20:00 Order name: NPO EDWI 03/19 20:00 Order name: Echo with Doppler EDWI 03/19 20:39 Order name: Lactate Sepsis 2 HR Follow-up; Complete Time: 20:42 EDMS Administered Medications: 14:59 CANCELLED (other intervention used): NS 0.9% (30 ml/kg) 30 ml/kg IV at bolus once; [facility] Sepsis Protocol 15:00 Drug: NS 0.9% 1000 ml Route: IV; Rate: 1 bolus; Site: left antecubital; sv 15:45 Follow up: Response: No adverse reaction; IV Status: Completed infusion; IV Intake: sv 1000ml 15:02 Drug: NARcan 0.2 mg Route: IVP; Site: right antecubital; sv 15:05 Follow up: Response: No adverse reaction sv 15:02 Drug: Tylenol Suppository 650 mg Route: ND; sv 15:30 Follow up: Response: No adverse reaction sv 15:41 Drug: Aspirin Suppository 600 mg Route: ND; sv 16:00 Follow up: Response: No adverse reaction sv 15:41 Drug: NS 0.9% 1000 ml Route: IV; Rate: 125 ml/hr; Site: left antecubital; sv 15:42 Drug: Insulin Regular Human 5 units {Co-Signature: aa5 (Cassie Harden RN).} Route: sv IVP; Site: right antecubital; 16:00 Follow up: Response: No adverse reaction sv 16:44 Drug: Insulin Drip - (Insulin Regular Human 100 units, NS 0.9% 100 ml) {Co-Signature: bird aa5 (Cassie Harden RN).} Route: IV; Rate: 5 units/hr; Site: left antecubital; 16:44 Drug: Sodium Bicarbonate 1 amp Route: IVP; Site: left antecubital; sv 17:00 Follow up: Response: No adverse reaction sv 16:44 Drug: Albuterol 2.5 mg Route: Inhalation; sv 16:44 Drug: Albuterol 2.5 mg Route: Inhalation; sv 16:44 Drug: Albuterol 2.5 mg Route: Inhalation; sv 17:01 Drug: Insulin Regular Human 5 units {Co-Signature: sv (Rosaura Bajwa RN).} Route: iw IVP; Site: right antecubital; 18:15 Follow up: Response: No adverse reaction sv 18:45 Drug: vancoMYCIN 1 grams Route: IVPB; Infused Over: 2 hrs; Site: right antecubital; sv 21:17 Follow up: IV Status: Completed infusion; IV Intake: 250ml bb 18:45 Drug: NS 0.9% 1000 ml Route: IV; Rate: 1 bolus; Site: right antecubital; sv 21:17 Follow up: IV Status: Completed infusion; IV Intake: 1000ml bb 20:05 Drug: Tylenol Suppository 650 mg Route: ND; bb 21:16 Follow up: Response: Temperature is unchanged bb Point of Care Testing: Blood Glucose: 16:00 Blood Glucose: High (>450 mg/dL); sv 18:16 Blood Glucose: 422 mg/dL; sv 19:46 Blood Glucose: 345 mg/dL; bb 20:58 Blood Glucose: 352 mg/dL; tl1 Ranges: Critical Glucose Levels:Adult <50 mg/dl or >400 mg/dl <40 mg/dl or >180 mg/dl Disposition: 03/20 08:59 Co-signature as Attending Physician, Tobin Fernandez MD I agree with the assessment and kdr plan of care. Disposition: 03/19/19 19:41 Hospitalization ordered by Adrian Eldridge for Inpatient Admission. Preliminary diagnosis are Nonketotic Hyperglycemic Hypoosmolar Coma, Sepsis, unspecified organism, Acute renal failure. - Bed requested for Intensive Care Unit. - Status is Inpatient Admission. tl1 - Condition is Fair. - Problem is new. - Symptoms are unchanged. UTI on Admission? No Signatures: Dispatcher [employer] EDMS Rosaura Bajwa, GLENIS RN sv Tobin Fernandez MD MD [facility] Margot Grewal, LABORATORY SCIENTIST-C LABORATORY SCIENTIST-Csnw Donna Zheng RN RN fc Sydney Rhodes RN RN bb Linda Dias RN RN Kristyn Bal RN RN tl1 Cassie Harden RN aa5 Rosaura Bajwa RN Corrections: (The following items were deleted from the chart) 03/19 14:59 14:57 NS 0.9% (30 ml/kg) 30 ml/kg IV at bolus once; Sepsis Protocol ordered. snw snw 19:42 19:41 Hospitalization Ordered by Adrian Eldridge MD for Inpatient Admission. Preliminary snw diagnosis is Nonketotic Hyperglycemic Hypoosmolar Coma; Sepsis, unspecified organism. Bed requested for Intensive Care Unit. Status is Inpatient Admission. Condition is Fair. Problem is new. Symptoms are unchanged. UTI on Admission? No. snw 20:19 19:42 03/19/2019 19:41 Hospitalization Ordered by Adrian Eldridge MD for Inpatient fc Admission. Preliminary diagnosis is Nonketotic Hyperglycemic Hypoosmolar Coma; Sepsis, unspecified organism; Acute renal failure. Bed requested for Intensive Care Unit. Status is Inpatient Admission. Condition is Fair. Problem is new. Symptoms are unchanged. UTI on Admission? No. snw 21:31 20:19 03/19/2019 19:41 Hospitalization Ordered by Adrian Eldridge MD for Inpatient tl1 Admission. Preliminary diagnosis is Nonketotic Hyperglycemic Hypoosmolar Coma; Sepsis, unspecified organism; Acute renal failure. Bed requested for Intensive Care Unit. Status is Inpatient Admission. Condition is Fair. Problem is new. Symptoms are unchanged. UTI on Admission? No. fc
--- NOTE | 2019-03-19 19:44 | ER ---
Nurse's Notes [facility] Name: Wilberto Liriano Age: 54 yrs Sex: Male : 1965 Arrival Date: 03/19/2019 Time: 14:44 Bed 6 Private MD: Diagnosis: Nonketotic Hyperglycemic Hypoosmolar Coma;Sepsis, unspecified organism;Acute renal failure Presentation: 03/19 14:35 Presenting complaint: EMS states: called out by pt's mother, stated he has been altered sv since Sunday and pt is normally A\T\O x4 and ambulatory. Mother stated his BS stated high, pt was grunting on EMS arrival, Temp axillary 101.6 BP 110/75 BS-595. Transition of care: patient was not received from another setting of care. Onset of symptoms was March 17, 2019. Risk Assessment: Do you want to hurt yourself or someone else? Patient reports no desire to harm self or others. Initial Sepsis Screen: Does the patient meet any 2 criteria? RR > 20 per min. Temp <36.0*C (96.8*F)) or > 38.3*C (100.9*F). Altered Mental Status. HR > 90 bpm. Yes Does the patient have a suspected source of infection? No. Patient's initial sepsis screen is negative. Care prior to arrival: IV initiated. 20 GA, in the right antecubital area, Glucose check: 595. 14:35 Method Of Arrival: EMS: [facility] sv 14:44 Acuity: PAIGE 2 sv Triage Assessment: 14:35 General: Appears in no apparent distress. uncomfortable, slender, well developed, sv Behavior is uncooperative. Pain: Unable to use pain scale. Patient is disoriented. FLACC scale score is 0 out of 10. Neuro: Level of Consciousness is obtunded, stuporous, Oriented to none does not follow commands. Cardiovascular: Heart tones S1 S2 present Capillary refill < 3 seconds in bilateral fingers Pulses are 2+ in right radial artery and left radial artery Rhythm is sinus tachycardia. Respiratory: Airway is patent Respiratory effort is even, shallow, Respiratory pattern is regular, tachypnea. GI: Abdomen is flat, non-distended, Abd is soft and non tender X 4 quads. Derm: Skin is clammy, Skin is normal, Skin temperature is hot. Historical: - Allergies: 17:11 No Known Allergies; sv - Home Meds: 17:11 Novalog 5-10 ml per day [Active]; Trintellix 20 mg oral tab 1 tab once daily [Active]; sv ferrous gluconate 324 mg (38 mg iron) Oral tab daily [Active]; carvedilol 25 mg Oral tab 1 tab 2 times per day [Active]; montelukast 10 mg Oral tab 1 tab once daily [Active]; tizanidine 4 mg Oral tab 1 tab nightly [Active]; gabapentin 600 mg Oral tab 1 tab twice a day [Active]; quetiapine 400 mg Oral tab 2 tab once daily [Active]; tamsulosin 0.4 mg oral cp24 1 cap once daily [Active]; hydrocodone-acetaminophen 10-325 mg Oral tab 1 tab every 6 hours [Active]; methocarbamol 500 mg Oral tab 2 tabs twice a day [Active]; - PMHx: 17:11 Diabetes - IDDM; Hypertension; pancreas problems; sv - PSHx: 17:11 Cholecystectomy; Gastric Bypass; sv - Immunization history:: Adult Immunizations unknown. - Social history:: Smoking status: unknown. - Ebola Screening: : Unable to complete screening because patient does not understand, patient is disoriented, . Screenin:00 Abuse screen: unknown. Nutritional screening: unknown. Tuberculosis screening: unknown. sv Fall Risk Fall in past 12 months (25 points). No secondary diagnosis (0 pts). IV access (20 points). Ambulatory Aid- None/Bed Rest/Nurse Assist (0 pts). Gait- Normal/Bed Rest/Wheelchair (0 pts) Mental Status- Overestimates/Forgets Limitations (15 pts.). Total Acosta Fall Scale indicates High Risk Score (45 or more points). Fall prevention measures have been instituted. Side Rails Up X 2 Placed Close to Nursing Station Frequent Obs/Assessments Occuring As available patient and family educated on Fall Prevention Program and Strategies. Assessment: 15:00 Reassessment: Patient appears in no apparent distress at this time. No changes from sv previously documented assessment. 15:05 Reassessment: No improvement in pt status after Narcan. sv 15:41 Reassessment: Patient appears in no apparent distress at this time. No changes from sv previously documented assessment. Patient and/or family updated on plan of care and expected duration. Pain level reassessed. 16:44 Reassessment: Patient appears in no apparent distress at this time. No changes from sv previously documented assessment. Patient and/or family updated on plan of care and expected duration. Pain level reassessed. Mother at the bedside, stated pt had back surgery in January of this year. 18:15 Reassessment: Patient appears in no apparent distress at this time. No changes from sv previously documented assessment. Patient and/or family updated on plan of care and expected duration. Pain level reassessed. Mother at the bedside. 19:15 General: Appears in no apparent distress. Behavior is responsive to pain. Neuro: Level bb of Consciousness is responsive to painful stimuli. Cardiovascular: Heart tones S1 S2 present. Respiratory: Respiratory effort is even, unlabored, Respiratory pattern is regular, Breath sounds are clear bilaterally. GI: Abdomen is non-distended, Bowel sounds present X 4 quads. : Nur in place to gravity drainage. Derm: Skin is dry, Skin is pink, Skin temperature is warm. Musculoskeletal: Capillary refill < 3 seconds. 19:45 Reassessment: Margot Grewal LIGHTING FIXTURE INSTALLER notified pt temp 100.9 new orders received pt bb medicated see AUG. Vital Signs: 14:40 BP 147 / 133; Pulse 109; Resp 28; Temp 101.9(A); Pulse Ox 99% ; sv 15:00 BP 132 / 94; Pulse 108; Resp 16; Pulse Ox 99% on R/A; sv 15:30 BP 132 / 94; Pulse 108; Resp 16; Pulse Ox 99% ; sv 16:00 BP 144 / 84; Pulse 110; Resp 34; Pulse Ox 99% on R/A; sv 16:30 BP 130 / 89; Pulse 106; Resp 31; Pulse Ox 98% on R/A; sv 16:45 BP 145 / 92; Pulse 105; Resp 24; Pulse Ox 100% on R/A; sv 17:48 BP 117 / 90; Pulse 108; Resp 30; Pulse Ox 100% ; sv 18:15 BP 143 / 87; Pulse 108; Resp 33; Pulse Ox 100% ; sv 18:32 BP 146 / 89; Pulse 109; Resp 32; Pulse Ox 99% on R/A; jb1 18:40 Temp 101.4(C); sv 19:00 BP 132 / 88; Pulse 102 MON; Resp 24; Temp 101(C); Pulse Ox 99% on R/A; sv 19:29 BP 163 / 91; Pulse 103; Resp 26; Temp 100.9(C); Pulse Ox 99% ; tl1 21:15 BP 149 / 95; Pulse 26; Resp 26 S; Temp 101(C); Pulse Ox 99% on R/A; bb 19:00 Sinus tachycardia sv ED Course: 14:35 Maintain EMS IV. Dressing intact. Good blood return noted. Site clean \T\ dry. Gauge \T\ sv site: 20G R AC. 14:35 security monitor on. Pulse ox on. NIBP on. Head of bed elevated. sv 14:44 Patient arrived in ED. sv 14:44 Triage completed. sv 14:45 Patient has correct armband on for positive identification. Placed in gown. Bed in low sv position. Call light in reach. Side rails up X2. 14:45 Arm band placed on. sv 14:47 EKG done, by classroom technology technician. reviewed by Tobin Fernandez MD. at1 14:49 Ki Rider NP is PHCP. pm1 14:49 Tobin Fernandez MD is Attending Physician. pm1 14:49 PHCP role handed off by Ki Rider NP snw 14:49 Margot Grewal FNP-C is PHCP. snw 14:51 Initial lab(s) drawn. Inserted saline lock: 20 gauge in left antecubital area, using iw aseptic technique. Blood collected. 15:11 CT completed. Patient tolerated procedure well. Patient moved back from CT. nj 15:12 Rosaura Bajwa, GLENIS is Primary Nurse. sv 15:15 CT Head Brain wo Cont In Process Unspecified. EDMS 15:30 Nur cath inserted, using sterile technique, 16 Fr., by ri, balloon inflated, to sv gravity drainage, urine specimen collected. other Criticore returned clear yellow urine. 15:37 Chest Single View XRAY In Process Unspecified. EDMS 15:49 Urine collected: Nur catheter specimen, cloudy, foster colored. jb1 16:08 Notified Nurse Practitioner and/or Physician Automotive Machinist of a critical lab result(s), sv potassium-5.7, glucose-619, creatinine-6.62, lactic acid-2.6. 16:09 Glucose Sent. sv 16:09 UDS Sent. sv 16:50 Nur cath removed intact, balloon deflated, Criticore needed to be removed d/t pt sv needing MRI. 17:00 Patient moved to MRI via stretcher. sv 17:09 CT Stone Protocol In Process Unspecified. EDMS 17:43 MRI Lumbar Spine wo Con In Process Unspecified. EDMS 18:05 MRI completed. Patient moved back from MRI. vm2 18:15 Nur cath inserted, using sterile technique, 16 Fr., by me, balloon inflated, to sv gravity drainage, other Criticore placed back in after MRI done. 19:14 Report given to Kristyn GALVIN and Sydney GALVIN. sv 19:15 Primary Nurse role handed off by Rosaura Bajwa RN sv 19:37 Adrian Eldridge MD is Hospitalizing Provider. [facility] 19:38 Sydney Rhodes RN is Primary Nurse. bb 21:14 No provider procedures requiring assistance completed. Patient admitted, IV remains in bb place. Administered Medications: 14:59 CANCELLED (other intervention used): NS 0.9% (30 ml/kg) 30 ml/kg IV at bolus once; [facility] Sepsis Protocol 15:00 Drug: NS 0.9% 1000 ml Route: IV; Rate: 1 bolus; Site: left antecubital; sv 15:45 Follow up: Response: No adverse reaction; IV Status: Completed infusion; IV Intake: sv 1000ml 15:02 Drug: NARcan 0.2 mg Route: IVP; Site: right antecubital; sv 15:05 Follow up: Response: No adverse reaction sv 15:02 Drug: Tylenol Suppository 650 mg Route: ID; sv 15:30 Follow up: Response: No adverse reaction sv 15:41 Drug: Aspirin Suppository 600 mg Route: ID; sv 16:00 Follow up: Response: No adverse reaction sv 15:41 Drug: NS 0.9% 1000 ml Route: IV; Rate: 125 ml/hr; Site: left antecubital; sv 15:42 Drug: Insulin Regular Human 5 units {Co-Signature: aa5 (Cassie Harden RN).} Route: sv IVP; Site: right antecubital; 16:00 Follow up: Response: No adverse reaction sv 16:44 Drug: Insulin Drip - (Insulin Regular Human 100 units, NS 0.9% 100 ml) {Co-Signature: sv aa5 (Cassie Harden RN).} Route: IV; Rate: 5 units/hr; Site: left antecubital; 16:44 Drug: Sodium Bicarbonate 1 amp Route: IVP; Site: left antecubital; sv 17:00 Follow up: Response: No adverse reaction sv 16:44 Drug: Albuterol 2.5 mg Route: Inhalation; sv 16:44 Drug: Albuterol 2.5 mg Route: Inhalation; sv 16:44 Drug: Albuterol 2.5 mg Route: Inhalation; sv 17:01 Drug: Insulin Regular Human 5 units {Co-Signature: sv (Rosaura Bajwa RN).} Route: iw IVP; Site: right antecubital; 18:15 Follow up: Response: No adverse reaction sv 18:45 Drug: vancoMYCIN 1 grams Route: IVPB; Infused Over: 2 hrs; Site: right antecubital; sv 21:17 Follow up: IV Status: Completed infusion; IV Intake: 250ml bb 18:45 Drug: NS 0.9% 1000 ml Route: IV; Rate: 1 bolus; Site: right antecubital; sv 21:17 Follow up: IV Status: Completed infusion; IV Intake: 1000ml bb 20:05 Drug: Tylenol Suppository 650 mg Route: ID; bb 21:16 Follow up: Response: Temperature is unchanged bb Point of Care Testing: Blood Glucose: 16:00 Blood Glucose: High (>450 mg/dL); sv 18:16 Blood Glucose: 422 mg/dL; sv 19:46 Blood Glucose: 345 mg/dL; bb 20:58 Blood Glucose: 352 mg/dL; tl1 Ranges: Intake: 15:45 IV: 1000ml; Total: 1000ml. sv 21:17 IV: 250ml; Total: 1250ml. bb 21:17 IV: 1000ml; Total: 2250ml. bb Outcome: 19:41 Decision to Hospitalize by Provider. snw 21:15 Admitted to ICU accompanied by nurse, accompanied by tech, family with patient, via bb stretcher, room 8, with chart, Report called to Charlee GALVIN 21:15 Condition: stable 21:15 Instructed on the need for transfer. 21:31 Patient left the ED. tl1 Signatures: Dispatcher [employer] Noé Vicente Stephanie, RN RN sv Margot Grewal, ELECTRO MECHANIC-C ELECTRO MECHANIC-Csnw Sydney Rhodes, GLENIS RN bb Linda Dias RN RN Estella Marinelli, [facility] EK Tat1 Kristyn Bal RN RN tl1 Ki Rider, LIGHTING FIXTURE INSTALLER LIGHTING FIXTURE INSTALLER pm1 Cody Corrigan [place] 2 Cassie Harden RN aa5 Rosaura Bajwa RN sv
[2019-03-19] MEDS ORDERED: ACETAMINOPHEN 500 MG TAB PO PRN (19:51)
[2019-03-19] MEDS ORDERED: ONDANSETRON 4 MG/2 ML VIAL IV PRN (19:51)
[2019-03-19] MEDS ORDERED: D5W 1,000 ML with NA BICARB 8.4% 100 MEQ IV SCH ×2 (20:00)
[2019-03-19] MEDS ORDERED: NA CHLORIDE 0.9% 250 ML IV SCH (20:00)
[2019-03-19] MEDS: CEFTRIAXONE 1 GM/NS 50 ML 1 GM/50 ML BAG IV SCH ×2 (21:00)
[2019-03-19] MEDS ORDERED: NA CHLORIDE 0.9% 1,000 ML IV SCH ×3 (21:00→22:00)
[2019-03-19 21:52] VITALS: BMI 24.0
[2019-03-19] MEDS ORDERED: CEFTRIAXONE/SWI 1gm 1 GM/10 ML SYR ONE (21:58)
[2019-03-19 23:35] LABS: Urine Protein/Creatinine Ratio 0.95 ratio (<0.15)
[2019-03-19 23:54] LABS: Urine Appearance CLOUDY; Urine Blood 3+ (NEG); Urine Color DK YELLOW; Urine Glucose TRACE (NEG); Urine Protein 2+ (NEG); Urine Specific Gravity 1.025 (1.005-1.030)
[2019-03-19 23:56] LABS: Urine Microscopic Reflex ORDER UMIC
[2019-03-20 00:07] LABS: Potassium 4.8 mmol/L (3.5-5.1)
[2019-03-20 00:21] LABS: Urine Bilirubin NEGATIVE (NEG)
[2019-03-20 00:48] LABS: Urine Culture Reflex Order NOT NEEDED
[2019-03-20 00:54] LABS: Urine Amorphous Sediment 2+ /HPF (NONE SEEN); Urine Bacteria 20-50 /HPF (NONE SEEN); Urine Waxy Casts 0-5 /LPF (NONE SEEN)
[2019-03-20 00:55] LABS: Urine RBC 20-50 /HPF (NONE SEEN)
[2019-03-20 05:54] LABS: Albumin 3.3 g/dL (3.4-5.0); Phosphorus 2.6 mg/dL (2.5-4.9); Potassium 4.5 mmol/L (3.5-5.1); Thyroid Stimulating Hormone 0.582 uIU/mL (0.360-3.740)
--- NOTE | 2019-03-20 07:05 | EKG ---
Test Date: 2019-03-19 Test Time: 14:41:25 Fast Food Manager: ZENA MEASUREMENT RESULTS: Intervals: Rate: 109 RI: 120 QRSD: 74 QT: 306 QTc: 412 [place]: P: 65 RI: 120 QRS: 23 T: 73 INTERPRETIVE STATEMENTS: Sinus tachycardia Otherwise normal ECG Compared to ECG 12/17/2018 17:48:02 Sinus rhythm no longer present Electronically Signed On 03-20-19 07:03:56 CDT by Anjum Guevara
[2019-03-20] MEDS: D5 0.45 NS 1,000 ML IV SCH ×2 (07:34→17:43)
[2019-03-20] MEDS: CEFTRIAXONE/SWI 1gm 1 GM/10 ML SYR IV SCH ×2 (09:13→20:16)
--- NOTE | 2019-03-20 09:22 | P.HP ---
Certification for Inpatient Patient admitted to: Inpatient With expected LOS: >2 Midnights Patient will require the following post-hospital care: None Practitioner: I am a practitioner with admitting privileges, knowledge of patient current condition, hospital course, and medical plan of care. Services: Services provided to patient in accordance with Admission requirements found in Title 42 Section 412.3 of the Code of Federal Regulations Patient History Date of Service: 03/19/19 Reason for admission: Altered mental status History of Present Illness: Patient is a 54-year-old gentleman who came into the hospital with altered mentation. Patient was confused and unable the speak. Patient was very lethargic. I contacted family to get history on the 2 phone numbers in the chart but was unsuccessful and speaking with anyone. I left my phone number to be contacted. Patient has acute kidney injury as well. Patient also had hyperglycemia and hyperkalemia. Patient had a metabolic acidosis. This was related to lactic acidosis. Patient has been started on IV hydration. Patient will continue on IV fluids. No source of infection. Patient has also been febrile. We will get an LP. Apparently patient had a lumbar fusion performed per a few months ago. MRI of the L-spine does not reveal an abscess. In light of the lumbar fusion we will get radiology to perform LP. In the meantime we will continue treatment for possible bacterial meningitis. Allergies No Known Allergies Allergy (Unverified 10/15/15 15:22) Home Medications: Carvedilol [Coreg*] 25 mg PO BID 04/12/17 Acetaminophen with Codeine [Acetaminophen-Cod #3 Tablet] 1 tab PO BID PRN Ferrous Gluconate 324 mg PO DAILY 03/19/19 Gabapentin 1,200 mg PO BID 03/19/19 Hydrocodone/Acetaminophen [Hydrocodone-Acetamin 10-325 mg] 1 tab PO Q6H PRN Insulin Aspart [Novolog] See Protocol SQ DAILY 03/19/19 Methocarbamol 1,000 mg PO BID 03/19/19 Montelukast Sodium [Singulair] 10 mg PO DAILY 03/19/19 Quetiapine Fumarate [Seroquel] 800 mg PO BEDTIME 03/19/19 Tamsulosin [Flomax] 0.4 mg PO BEDTIME 03/19/19 Tizanidine HCl 4 mg PO BEDTIME 03/19/19 Vortioxetine Hydrobromide [Brintellix] 20 mg PO DAILY 03/19/19 - Past Medical/Surgical History Diabetic: Yes -: Diabetes mellitus type 2 -: Hypertension -: Insomnia -: Depression -: Chronic pain -: Alcohol abuse -: Gastric bypass, had to have 2 revisions -: Cholecystectomy -: Trigger finger surgery -: Colonoscopy -: Recent cardiac catheterization done 02/2017 - Family History Mother Medical History: Heart disease, Diabetes - Social History Smoking Status: Former smoker Alcohol use: Yes CD- Drugs: No Caffeine use: No Review of Systems 10-point ROS is otherwise unremarkable Physical Examination - Vital Signs Temperature: 99.9 F Blood Pressure: 152/100 Pulse: 94 Respirations: 10 Pulse Ox (%): 98 - Physical Exam General: Confused, Unresponsive (Not able to follow commands) HEENT: Atraumatic, PERRLA, Mucous membr. moist/pink, EOMI, Sclerae nonicteric Neck: Supple, 2+ carotid pulse no bruit, No LAD, Without JVD or thyroid abnormality Respiratory: Clear to auscultation bilaterally, Normal air movement Cardiovascular: Regular rate/rhythm, Normal S1 S2, No murmurs Gastrointestinal: Normal bowel sounds, Soft and benign, Non-distended, No tenderness Musculoskeletal: No clubbing, No swelling, No tenderness Integumentary: No rashes Neurological: Cranial nerves 3-12 intact, Abnormal gait, Abnormal speech, Abnormal strength, Abnormal tone, Abnormal affect Lymphatics: No axilla or inguinal lymphadenopathy - Studies Laboratory Data (last 24 hrs) 03/19/19 18:37: PT 10.1, INR 0.85, APTT 27.6 03/19/19 16:05: Glucose 512 H* 03/19/19 15:00: WBC 13.1 H, Hgb 14.2, Hct 43.4, Plt Count 175 03/19/19 15:00: Sodium 142, Potassium 5.7 H*, BUN 80 H, Creatinine 6.62 H*, Glucose 619 H*, Total Bilirubin 0.5, AST 28, ALT 23, Alkaline Phosphatase 270 H , Lipase 2114 H Microbiology Data (last 24 hrs): 03/19/19 16:15 Nasopharnyx Influenza Type A Antigen Screen - Final 03/19/19 16:15 Nasopharnyx Influenza Type B Antigen Screen - Final Assessment & Plan - Problems (Diagnosis) (1) Diabetes mellitus Onset Date: 04/13/17 Current Visit: No Status: Chronic (2) Hypertension Onset Date: 04/13/17 Current Visit: No Status: Chronic - Plan ASSESSMENT: 1. ALTERED MENTAL STATUS 2. ACUTE KIDNEY INJURY 3. HYPERGLYCEMIA 4. DM2/HTN 5. BACTERIAL MENINGITIS PLAN: 1. IV FLUIDS 2. IV ANTIBIOTIC 3. STRICT BLOOD PRESSURE AND BLOOD SUGAR CONTROL 4. LUMBAR PUNCTURE 5. MAY NEED MRI OF THE BRAIN 6. NEED TO SPEAK WITH FAMILY TO GET MORE INFORMATION REGARDING PATIENT'S HISTORY 7. NEUROLOGY AND NEPHROLOGY CONSULTATION 8. MONITOR LABS CLOSELY 9. GI AND DVT PROPHYLAXIS Discharge Plan: Home Plan to discharge in: Greater than 2 days - Advance Directives Does patient have a Living Will: No Does patient have a Durable POA for Healthcare: No - Code Status/Comfort Care Code Status Assessed: Yes Code Status: Full Code Critical Care: No Time Spent Managing PTS Care (In Minutes): 45
--- NOTE | 2019-03-20 11:31 | ECHO ---
HEIGHT: 5 ft 7 in WEIGHT: 156 lb 3.2 oz DATE OF STUDY: 03/20/[address]: Adrian Eldridge MD 2-DIMENSIONAL: YES M.MODE: YES DOPPLER: YES COLOR FLOW: YES TDS: NO PORTABLE: YES DEFINITY: NO BUBBLE STUDY: NO DIAGNOSIS: CONGESTIVE HEART FAILURE CARDIAC HISTORY: CATHERIZATION: NO SURGERY: NO PROSTHETIC VALVE: NO PACEMAKER: NO MEASUREMENTS (cm) DIASTOLIC (NORMALS) SYSTOLIC (NORMALS) IVSd 0.9 (0.6-1.2) LA Diam 2.8 (1.9-4.0) LVEF 69% LVIDd 3.7 (3.5-5.7) LVIDs 2.3 (2.0-3.5) %FS 38% LVPWd 1.0 (0.6-1.2) Ao Diam 2.7 (2.0-3.7) 2 DIMENSIONAL ASSESSMENT: RIGHT ATRIUM: NORMAL LEFT ATRIUM: NORMAL RIGHT VENTRICLE: NORMAL LEFT VENTRICLE: NORMAL TRICUSPID VALVE: NORMAL MITRAL VALVE: NORMAL PULMONIC VALVE: NORMAL AORTIC VALVE: NORMAL PERICARDIAL EFFUSION: NONE AORTIC ROOT: NORMAL LEFT VENTRICULAR WALL MOTION: NORMAL EJECTION FRACTION, DECREASED LEFT VENTRICULAR COMPLIANCE. DOPPLER/COLOR FLOW: NORMAL. COMMENTS: NORMAL EJECTION FRACTION. DECREASED LEFT VENTRICULAR COMPLIANCE. NO EFFUSION. TECHNOLOGIST: CURTIS BURRELL
[2019-03-20 12:01] LABS: Bilirubin Total 0.3 mg/dL (0.2-1.0); Potassium 4.2 mmol/L (3.5-5.1); Protein, Total 6.6 g/dL (6.4-8.2)
[2019-03-20] MEDS ORDERED: LORazepam 2 MG/ML VIAL IV ONE (13:58)
[2019-03-20] MEDS ORDERED: LORazepam 2 MG/ML VIAL ONE (14:02)
--- NOTE | 2019-03-20 15:40 | RAD REPORT ---
EXAM DESCRIPTION: RAD - Lumbar Puncture For Dx - 03/20/2019 3:08 pm CLINICAL HISTORY: Altered mental status, fever COMPARISON: None. TECHNIQUE: Informed consent was obtained from the patient's family member with consent procedure per form by ICU department personnel. Patient was been premedicated for the procedure by ICU personnel. Jeferson violettasonja presents from the ICU with ICU nurse present for the procedure. Patient wound monitored throug hout the procedure with no change in vital signs. The patient was placed in an oblique prone position on the fluoroscopic table. The skin of the lower back was prepped and draped in the usual sterile fashion. After anesthetizing the skin and deeper sof t tissues with 1% lidocaine, a 22 gauge needle was advanced into the thecal sac at the L3 level. Clear colorless CSF was obtained. Approximately 6-7 mL of CSF obtained. At the conclusion of the procedure, the needle was withdrawn and a sterile bandage placed over the pu ncture site. The patient tolerated the procedure well without immediate complications. Patient was transferred back to the ICU for continued care. IMPRESSION: Successful fluoroscopic guided lumbar puncture.
[2019-03-20 15:42] LABS: CSF Glucose 184 mg/dL (40-70)
[2019-03-20 16:36] LABS: Appearance CLEAR (CLEAR); Body Fluid Source CSF; Color of fluid Colorless (COLORLESS)
[2019-03-20 16:38] LABS: Body Fluid WBC 1 /mm^3
[2019-03-20 16:42] LABS: Appearance CLEAR (CLEAR); Body Fluid Source CSF; Color of fluid Colorless (COLORLESS)
[2019-03-20 16:43] LABS: Body Fluid WBC 0 /mm^3
--- NOTE | 2019-03-20 16:51 | P.PN ---
Subjective Date of Service: 03/20/19 Chief Complaint: Altered mental status Subjective: No new changes Review of Systems 10-point ROS is otherwise unremarkable Physical Examination - Vital Signs Temperature: 99.9 F Blood Pressure: 168/94 Pulse: 94 Respirations: 10 Pulse Ox (%): 98 - Physical Exam General: Unresponsive, Other Neck: Supple, JVD not distended Respiratory: Clear to auscultation bilaterally, Normal air movement Cardiovascular: Regular rate/rhythm, Normal S1 S2 Gastrointestinal: Normal bowel sounds, No tenderness - Studies Laboratory Data (last 24 hrs) 03/19/19 18:37: PT 10.1, INR 0.85, APTT 27.6 Microbiology Data (last 24 hrs): 03/19/19 16:15 Nasopharnyx Influenza Type A Antigen Screen - Final 03/19/19 16:15 Nasopharnyx Influenza Type B Antigen Screen - Final Assessment And Plan - Plan 1. ALTERED MENTAL STATUS 2. ACUTE KIDNEY INJURY 3. HYPERGLYCEMIA, HHS 4. DM2 5. HTN 6. SUSPECTED MENINGITIS - Pending LP analysis 7. HYPERNATREMIA 8. ACIDOSIS PLAN: 1. CONTINUE IV FLUIDS 2. IV ANTIBIOTIC 3. STRICT BLOOD PRESSURE AND BLOOD SUGAR CONTROL 4. LUMBAR PUNCTURE, PENDING 5. MAY NEED MRI OF THE BRAIN 6. NEUROLOGY AND NEPHROLOGY CONSULTATION, RECOMMENDATIONS APPRECIATED 8. MONITOR LABS CLOSELY 9. GI AND DVT PROPHYLAXIS
[2019-03-20] MEDS ORDERED: NA CHLORIDE 0.9% 2,000 ML ONE (17:24)
[2019-03-20] MEDS ORDERED: ACETAMINOPHEN 650MG/RECT SUPP PR ONE (17:24)
[2019-03-20] MEDS: INSULIN -REGULAR HUMAN 100 UNIT in NA CHLORIDE 0.9% 100 ML IV SCH (17:59)
[2019-03-20] MEDS: D5W 1,000 ML IV SCH (18:39)
--- NOTE | 2019-03-20 22:36 | CON ---
Date of Consultation: 03/20/2019 Reason For Consultation: Elevated BUN and creatinine, hypernatremia, acidosis. History Of Present Illness: All the information has been obtained from the record as the patient alt ered mental status, obtunded. This is a 54-year-old gentleman with significant past medical history of diabetes, depression, hypertension. Apparently, patient brought to the hospital by the mother baldev h altered mental status, unable to speak, feeling lethargic since 3 days ago, gradually getting worse . Primary workup in the emergency room found elevation in BUN and creatinine with acidosis, elevated lactic acid and hyperglycemia. The patient was started on aggressive hydration. Kidney function sl ightly got better, but his hyponatremia got worse. There is no family by bedside. Lumbar puncture a ttempt failed. Allergies: NO KNOWN DRUGS ALLERGY. Home Medications: 1.Carvedilol. 2.Tylenol. 3.Gabapentin. 4.Insulin. 5.Carbimazole. 6.Flomax. 7.Tizanidine. 8.Brilinta. Past Medical History: 1.Diabetes. 2.Hypertension. 3.Depression. 4.Alcohol abuse. 5.Gastric bypass. 6.Colonoscopy. 7.Cardiac cath back in February 2017. Family History: Positive for diabetes and hypertension. Social History: Ex-smoker. Denied alcohol, denied drug abuse. Review of Systems: Not obtainable. Physical Examination: Vital Signs: When I saw the patient, blood pressure of 116/78, pulse of 85. Patient had urine output in the last 12 hours of 350. Chest: Clear to auscultation. Heart: S1, S2. Regular. Abdomen: Soft, nontender. Extremities: No edema. Neuro: Moving 4 extremities freely without any focality. Cranial nerve intact. Patient withdraws h is hand for pain and withdraws his hand from falling on his face, but pretends not to follow any comm and, grimacing with any pain or threatening to his face or eyes. Refused to open eyes. Laboratory Data: WBC 13.1, H and H 14.2/43.4, platelets 175. On admission, sodium 142, potassium 5. 7, bicarb 19, BUN 80, creatinine 6.6, GFR of 9, blood sugar above 600. LFT within normal limit. CK 993, C-reactive protein 75, albumin of 4, TSH of 0.5, PTH of 184. Latest serum osmolality of 354, ca lculated osmolality 351. Latest lab data; sodium 152, potassium 4.5, chloride 112, bicarb 19, BUN 81 , creatinine down to 5.2, GFR of 12, calcium of 8, phos 2.6, albumin 3.3. Urine analysis, rbc of 50, negative wbc. Opioid was positive. CT, no obstructive uropathy. Reviewing the record, previous lab creatinine 1.6 back in December. Assessment And Plan: 1.Acute kidney injury on chronic kidney disease secondary to complicated with acidosis an d hyperkalemia. I am going to continue aggressive hydration. There is no osmolar gap to think about ethylene glycol. 2.Altered mental status, as I mentioned with his neurology exam, looks that he is listening and prot ects from any facial injury. 3.Hypertension, controlled, optimal. 4.Acidosis, mild secondary to renal failure. I do not see the need for any bicarb for the time egale wick. We will monitor. 5.Diabetic ketoacidosis. Continue by protocol. 6.Uremia. Patient nonoliguric. If kidney function does not improve by tomorrow, patient will need to be initiated on renal replacement therapy. 7.Altered mental status. Toxicology being negative. No osmolar gap. I am going to go ahead and se nd for Tylenol level and salicylate and we will follow up the patient. 8.Hypernatremia. We will change IV fluid to D5 and we will monitor the patient. 9.Continue hydration. Thank you Dr. Vale for allowing us to participate in the care of your patient. GILLIAN/VENKAT Voice ID: [id number] Report ID: [id number]
[2019-03-21 01:10] LABS: Rheumatoid Factor NEG (NEG)
[2019-03-21 06:12] LABS: Albumin 3.2 g/dL (3.4-5.0); Phosphorus 2.4 mg/dL (2.5-4.9); Potassium 3.7 mmol/L (3.5-5.1)
[2019-03-21] MEDS: CEFTRIAXONE/SWI 1gm 1 GM/10 ML SYR IV SCH ×2 (08:24→22:02)
[2019-03-21] MEDS: D5W 1,000 ML IV SCH ×2 (08:24→22:57)
--- NOTE | 2019-03-21 11:38 | RAD REPORT ---
EXAM DESCRIPTION: MRI - Brain Wo Cont - 03/21/2019 11:17 am CLINICAL HISTORY: Confusion/alteration of awareness COMPARISON: March 19, [address] TECHNIQUE: Axial, sagittal, and coronal magnetic images of the brain were obtained. Contrast was not requested FINDINGS: Images are degraded by patient motion artifact. All of the MRI sequences could not be perf ormed No abnormal signal is present within the brain. Diffusion-weighted/ADC mapping does not reveal evidence of acute infarction. The ventricles are normal caliber. An extra-axial fluid collection is not present The sinuses and mastoids are clear. IMPRESSION: Grossly normal unenhanced MRI brain
--- NOTE | 2019-03-21 13:41 | P.PN ---
Subjective Date of Service: 03/21/19 Chief Complaint: Altered mental status Pt admitted for AMS , found to have JOHN , hypernatremia and chloremia Today more alert as per mother , Not oriented CR down to 2.5 WIll cont D5w and Insulin drip Bicarb improving CSF W/i so far negative Physical Examination - Vital Signs Temperature: 99.6 F Blood Pressure: 155/83 Pulse: 80 Respirations: 15 Pulse Ox (%): 98 - Physical Exam General: Confused HEENT: Atraumatic Neck: Supple, Without JVD or thyroid abnormality Respiratory: Clear to auscultation bilaterally, Normal air movement Cardiovascular: No edema, Regular rate/rhythm, Normal S1 S2, No gallops, No rubs Gastrointestinal: Soft and benign - Studies Microbiology Data (last 24 hrs): 03/19/19 15:50 Catheterized Urine [place] Count - Final 03/19/19 15:50 Catheterized Urine - Final Assessment And Plan - Current Problems (Diagnosis) (1) JOHN (acute kidney injury) Current Visit: Yes Status: Acute (2) Diabetes mellitus Onset Date: 04/13/17 Current Visit: No Status: Chronic Qualifiers: Diabetes mellitus type: type 2 Diabetes mellitus [facility] insulin use: with [facility] use Diabetes mellitus complication status: with hypoglycemia Diabetes mellitus complication detail: with coma Qualified Code(s): E11.641 - Type 2 diabetes mellitus with hypoglycemia with coma; Z79.4 - senior living (current ) use of insulin; 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
--- NOTE | 2019-03-21 17:07 | P.PN ---
Subjective Date of Service: 03/21/19 Chief Complaint: Altered mental status Subjective: Improving Patient seen and examined at bedside. Mother at bedside. Chart reviewed and case discussed with nursing staff. Per mother, patient more alert today, not oriented Review of Systems 10-point ROS is otherwise unremarkable Physical Examination - Vital Signs Temperature: 98.7 F Blood Pressure: 133/74 Pulse: 81 Respirations: 12 Pulse Ox (%): 99 - Physical Exam General: Alert, In no apparent distress, Other (not speaking still) HEENT: Atraumatic, PERRLA, EOMI Neck: Supple, JVD not distended Respiratory: Clear to auscultation bilaterally, Normal air movement Cardiovascular: Regular rate/rhythm, Normal S1 S2 Gastrointestinal: Normal bowel sounds, No tenderness Neurological: Other (Withdraws from pain, moving extremities spontaneously; It seems taht he does understand but not responding back properly. ) - Studies Microbiology Data (last 24 hrs): 03/19/19 15:50 Catheterized Urine [place] Count - Final 03/19/19 15:50 Catheterized Urine - Final Assessment And Plan - Plan ALTERED MENTAL STATUS Unsure of etiology CT scan negative MRI of the brain negative for any acute abnormalities Unsure if maybe underlying psych issues Not likely that this is due to the hyper hypernatremia CSF so far does not look like that of for meningitis. Cultures are still pending, will follow up HYPERNATREMIA ACIDOSIS HYPERCHLOREMIA, likely secondary to starvation ACUTE KIDNEY INJURY improving Likely secondary to dehydration Will continue IV fluids at this time Nephrology consulted, recommendations appreciated. HYPERGLYCEMIA, HHS Continue IV insulin, continue to monitor blood glucose closely DM2 HTN SUSPECTED MENINGITIS, less likely CSF culture still pending, will follow up Critical Care: Yes
[2019-03-22] MEDS: INSULIN -REGULAR HUMAN 100 UNIT in NA CHLORIDE 0.9% 100 ML IV SCH (04:56)
[2019-03-22 05:35] LABS: Albumin 3.4 g/dL (3.4-5.0); Phosphorus 2.4 mg/dL (2.5-4.9); Potassium 3.4 mmol/L (3.5-5.1)
[2019-03-22] MEDS: CEFTRIAXONE/SWI 1gm 1 GM/10 ML SYR IV SCH ×2 (09:10→20:06)
[2019-03-22] MEDS ORDERED: POTASSIUM CL SA 10 MEQ TAB PO ONE (09:43)
[2019-03-22] MEDS: D5W 1,000 ML IV SCH ×2 (11:35→17:20)
--- NOTE | 2019-03-22 11:44 | P.PN ---
Subjective Date of Service: 03/22/19 Chief Complaint: Altered mental status Subjective: Improving Patient seen and examined at bedside. Mother at bedside. Chart reviewed and case discussed with nursing staff. Patient more alert and oriented today. Talking more, still not back to baseline. Tolerating PO diet, no acute events noted overnight. Review of Systems 10-point ROS is otherwise unremarkable Physical Examination - Vital Signs Temperature: 99 F Blood Pressure: 141/77 Pulse: 83 Respirations: 17 Pulse Ox (%): 100 - Physical Exam General: Alert, In no apparent distress, Oriented x3 HEENT: Atraumatic, PERRLA, EOMI Neck: Supple, JVD not distended Respiratory: Clear to auscultation bilaterally, Normal air movement Cardiovascular: Regular rate/rhythm, Normal S1 S2 Gastrointestinal: Normal bowel sounds, No tenderness Musculoskeletal: No tenderness Integumentary: No rashes Neurological: Normal speech, Normal tone, Normal affect Lymphatics: No axilla or inguinal lymphadenopathy - Studies Microbiology Data (last 24 hrs): 03/19/19 15:50 Catheterized Urine [place] Count - Final 03/19/19 15:50 Catheterized Urine - Final Assessment And Plan - Plan ALTERED MENTAL STATUS Unsure of etiology CT scan negative MRI of the brain negative for any acute abnormalities Unsure if maybe underlying psych issues Not likely that this is due to the hypernatremia CSF so far does not look like that of for meningitis. Cultures negative. No WBC noted in CSF. Not likely viral or bacterial meningitis. HYPERNATREMIA ACIDOSIS HYPERCHLOREMIA, likely secondary to starvation ACUTE KIDNEY INJURY improving Likely secondary to dehydration Will continue IV fluids at this time Nephrology consulted, recommendations appreciated. HYPERGLYCEMIA, HHS Continue IV insulin, continue to monitor blood glucose closely DM2 HTN MENINGITIS, less likely CSF cultures with no growht. CSF without WBC count/neutrophil or lymphocytes
--- NOTE | 2019-03-22 12:11 | PN ---
Date of Progress Note: 03/22/2019 Subjective: Patient was admitted with severe acidosis, hyperkalemia, acute kidney injury, altered me ntal status with hypernatremia. The patient's DKA has been resolved. Toxicology workup was negative . Objective: Vital Signs: Blood pressure 141/71, pulse of 83. Chest: Clear to auscultation. Heart: S1, S2, regular. Abdomen: Soft, nontender. Extremity: No edema. Neuro: Alert, nonfocal, slow, but oriented to person and time. Laboratory Data: WBC 13.1, H and H 14.2/43.4, platelets 175. Sodium 151, potassium 3.4, bicarb 24, BUN 45, creatinine 1.5. Blood sugar still on the 200. Calcium 8.5, phosphorous 2.4, magnesium of 2. Albumin 3.4. Current Medications: The patient on is include D5 at 75 per hour, ceftriaxone, Zofran, insulin drip. Assessment And Plan: 1.Acute kidney injury secondary to prerenal, secondary to glucose diuresis, under recovery. We will continue hydration. 2.Diabetic ketoacidosis, resolved. 3.Hyperglycemia. Continue insulin drip. 4.Hyponatremia secondary to depletion. Increase D5 to 100. We will follow up. 5.Hypokalemia. We will supplement. 6.Altered mental status, unknown etiology. 7.Hypoglycemic with proteinuria, protein in the CSF. To consider neuro eval/viral meningitis. 8.Diabetes/diabetic ketoacidosis as above. GILLIAN/MODGideon Voice ID: [id number] Report ID: [id number]
[2019-03-22 18:01] LABS: Hepatitis C Virus RNA (PCR)log <1.18 log IU/mL
[2019-03-23 05:40] LABS: Albumin 3.2 g/dL (3.4-5.0); Magnesium 1.9 mg/dL (1.8-2.4); Phosphorus 2.5 mg/dL (2.5-4.9); Potassium 3.2 mmol/L (3.5-5.1)
[2019-03-23] MEDS: CEFTRIAXONE/SWI 1gm 1 GM/10 ML SYR IV SCH ×2 (08:12→20:47)
[2019-03-23] MEDS: D5W 1,000 ML IV SCH (08:13)
[2019-03-23] MEDS: INSULIN -REGULAR HUMAN 100 UNIT in NA CHLORIDE 0.9% 100 ML IV SCH (10:26)
[2019-03-23] MEDS ORDERED: D50W 25 GM/50 ML SYRINGE IV PRN ×2 (12:40→14:59)
[2019-03-23] MEDS ORDERED: GLUCAGON 1 MG/VIAL IM PRN ×2 (12:40→14:59)
[2019-03-23] MEDS ORDERED: INSULIN GLARGINE 100 UNITS/ML SQ SCH (12:58)
[2019-03-23] MEDS ORDERED: POTASSIUM CL SA 10 MEQ TAB PO ONE (13:00)
[2019-03-23] MEDS ORDERED: MAGNESIUM SULFATE 1 gm IVPB 1 GM/100 ML BAG IV ONE (13:00)
--- NOTE | 2019-03-23 13:13 | P.PN ---
Subjective Date of Service: 03/23/19 Chief Complaint: Altered mental status Subjective: Improving Patient seen and examined at bedside. Mother at bedside. Chart reviewed and case discussed with nursing staff. Patient alert oriented, mentation back to baseline. Communicating well. Tolerating PO diet, no acute events noted overnight. Review of Systems 10-point ROS is otherwise unremarkable Physical Examination - Vital Signs Temperature: 97.3 F Blood Pressure: 110/49 Pulse: 79 Respirations: 18 Pulse Ox (%): 100 - Physical Exam General: Alert, In no apparent distress HEENT: Atraumatic, PERRLA, EOMI Neck: Supple, JVD not distended Respiratory: Clear to auscultation bilaterally, Normal air movement Cardiovascular: Regular rate/rhythm, Normal S1 S2 Gastrointestinal: Normal bowel sounds, No tenderness Musculoskeletal: No tenderness Integumentary: No rashes Neurological: Normal speech, Normal tone, Normal affect Lymphatics: No axilla or inguinal lymphadenopathy Assessment And Plan - Plan ALTERED MENTAL STATUS -resolved, mentation back to baseline Unsure of etiology CT scan negative MRI of the brain negative for any acute abnormalities Unsure if maybe underlying psych issues This could be due to the hypernatremia CSF so far does not look like that of for meningitis. Cultures negative. No WBC noted in CSF. Not likely viral or bacterial meningitis. HYPERNATREMIA -resolved ACIDOSIS -resolved HYPERCHLOREMIA, -resolved. likely secondary to starvation ACUTE KIDNEY INJURY improving Likely secondary to dehydration Will continue IV fluids at this time Nephrology consulted, recommendations appreciated. HYPERGLYCEMIA, HHS Will start patient on Lantus. Dc IV insulin/IV fluids. Continue to monitor blood sugars and adjust insulin as needed. DM2 HTN MENINGITIS, less likely CSF cultures with no growht. CSF without WBC count/neutrophil or lymphocytes Disposition: Can transfer patient to the floor out of the ICU.
[2019-03-23] MEDS: INSULIN -REGULAR HUMAN 50 UNIT/0.5 ML ML SQ SCH ×2 (16:22→20:47)
[2019-03-23] MEDS ORDERED: INSULIN -REGULAR HUMAN 50 UNIT/0.5 ML ML SQ SCH (16:30)
--- NOTE | 2019-03-23 17:45 | PN ---
Date of Progress Note: 03/23/2019 Subjective: Patient doing much better. More awake today. Physical Examination: Vital Signs: Blood pressure 110/49, pulse of 79. Chest: Clear to auscultation. Heart: S1, S2. Regular. Abdomen: Soft, nontender. Extremities: No edema. NEUROLOGIC: Alert. Nonfocal. Laboratory Data: WBC 13.1, H and H 14.2/43.4, platelets 175. Sodium 143, potassium 3.2, bicarb 26, BUN 24, creatinine 1.1 GFR of 66, calcium 8.2, phosphorus 2.5, magnesium 1.9. Current Medications: Ceftriaxone, Zofran, insulin drip, D5. Assessment And Plan: 1.Acute kidney injury secondary to prerenal, complicated with acidosis and hyperkalemia, resolved. 2.Hypertension, controlled optimal. Continue to monitor. 3.Diabetic ketoacidosis, resolved. We will discontinue insulin drip, place on Lantus. 4.Hypokalemia, hypomagnesemia. We will supplement. 5.Hypernatremia secondary to poor intake, resolved. GILLIAN/VENKAT Voice ID: [id number] Report ID: [id number]
[2019-03-23 20:16] VITALS: O2SAT 99
[2019-03-23] MEDS: INSULIN GLARGINE 100 UNITS/ML SQ SCH (20:48)
[2019-03-24 05:57] LABS: Albumin 3.3 g/dL (3.4-5.0); Magnesium 2.3 mg/dL (1.8-2.4); Phosphorus 3.2 mg/dL (2.5-4.9); Potassium 3.9 mmol/L (3.5-5.1)
[2019-03-24] MEDS: CEFTRIAXONE/SWI 1gm 1 GM/10 ML SYR IV SCH (09:04)
[2019-03-24] MEDS: INSULIN GLARGINE 100 UNITS/ML SQ SCH (09:04)
[2019-03-24] MEDS: INSULIN -REGULAR HUMAN 50 UNIT/0.5 ML ML SQ SCH ×2 (09:04→11:30)
[2019-03-24 11:57] VITALS: BP 123/86; TEMP 97
[2019-03-24 12:06] LABS: HIV AG/AB 4TH GEN Non-reactive (Non-reactive)
--- NOTE | 2019-03-24 14:47 | P.DS ---
Admission Date: 03/19/19 Discharge Date: 03/24/19 Disposition: ROUTINE DISCHARGE Discharge Condition: GOOD Reason for Admission: Altered mental status Consultations: Nephrology Brief History of Present Illness: Patient is a 54-year-old gentleman who came into the hospital with altered mentation. Patient was confused and unable the speak. Patient was very lethargic. I contacted family to get history on the 2 phone numbers in the chart but was unsuccessful and speaking with anyone. I left my phone number to be contacted. Patient has acute kidney injury as well. Patient also had hyperglycemia and hyperkalemia. Patient had a metabolic acidosis. This was related to lactic acidosis. Patient has been started on IV hydration. Patient will continue on IV fluids. No source of infection. Patient has also been febrile. We will get an LP. Apparently patient had a lumbar fusion performed per a few months ago. MRI of the L-spine does not reveal an abscess. In light of the lumbar fusion we will get radiology to perform LP. In the meantime we will continue treatment for possible bacterial meningitis. Hospital Course: Patient was admitted to the ICU for altered mental status. CT and MRI of the brain was negative for any acute abnormalities. This may have been secondary to underlying hypernatremia, psych issues, and HHS/acidosis. LP was done and CSF did not show any evidence of meningitis. He was started on antibiotics, IVF. He was also started on insulin drip, which was weaned off to lantus subcutaneously. His electrolytes were normalized with IVFs. Nephrology was consulted. His blood sugars improved and his symptoms also improved. He does have a hx of depression. he denied any SI or HI throughout the stay. His mentation returned to baseline prior to his discharge. Prior to discharge, he was also ambulating without any concerns, he was tolerating a diet. His diagnosis and treatment plan was explained to him, all questions were answered and he verbalized understanding. He was then discharged home in a safe and stable manner. Vital Signs/Physical Exam: Temp Pulse Resp BP Pulse Ox 97 F 73 14 123/86 99 03/24/19 11:56 03/24/19 11:56 03/24/19 11:56 03/24/19 11:56 03/24/19 11:56 General: Alert, In no apparent distress HEENT: Atraumatic, PERRLA, EOMI Neck: Supple, JVD not distended Respiratory: Clear to auscultation bilaterally, Normal air movement Cardiovascular: Regular rate/rhythm, Normal S1 S2 Gastrointestinal: Normal bowel sounds, No tenderness Musculoskeletal: No tenderness Integumentary: No rashes Neurological: Normal speech, Normal tone, Normal affect Lymphatics: No axilla or inguinal lymphadenopathy Laboratory Data at Discharge: WBC 13.1 K/uL (4.3-10.9) H 03/19/19 15:00 Hgb 14.2 g/dL (13.6-17.9) 03/19/19 15:00 Hct 43.4 % (39.6-49.0) 03/19/19 15:00 Plt Count 175 K/uL (152-406) 03/19/19 15:00 PT 10.1 SECONDS (9.5-12.5) 03/19/19 18:37 INR 0.85 03/19/19 18:37 APTT 27.6 SECONDS (24.3-36.9) 03/19/19 18:37 Sodium 144 mmol/L (136-145) 03/24/19 05:26 Potassium 3.9 mmol/L (3.5-5.1) 03/24/19 05:26 BUN 20 mg/dL (7-18) H 03/24/19 05:26 Creatinine 1.06 mg/dL (0.55-1.3) 03/24/19 05:26 Glucose 275 mg/dL (74-106) H 03/24/19 05:26 Phosphorus 3.2 mg/dL (2.5-4.9) 03/24/19 05:26 Magnesium 2.3 mg/dL (1.8-2.4) 03/24/19 05:26 Total Bilirubin 0.3 mg/dL (0.2-1.0) 03/20/19 11:13 AST 41 U/L (15-37) H 03/20/19 11:13 ALT 22 U/L (12-78) 03/20/19 11:13 Alkaline Phosphatase 174 U/L (45-117) H 03/20/19 11:13 Lipase 2114 U/L (73-393) H 03/19/19 15:00 Home Medications: Carvedilol [Coreg*] 25 mg PO BID 04/12/17 Acetaminophen with Codeine [Acetaminophen-Cod #3 Tablet] 1 tab PO BID PRN Ferrous Gluconate 324 mg PO DAILY 03/19/19 Gabapentin 1,200 mg PO BID 03/19/19 Hydrocodone/Acetaminophen [Hydrocodone-Acetamin 10-325 mg] 1 tab PO Q6H PRN Insulin Aspart [Novolog] See Protocol SQ DAILY 03/19/19 Methocarbamol 1,000 mg PO BID 03/19/19 Montelukast Sodium [Singulair] 10 mg PO DAILY 03/19/19 Quetiapine Fumarate [Seroquel] 800 mg PO BEDTIME 03/19/19 Tamsulosin [Flomax*] 0.4 mg PO BEDTIME 03/19/19 Tizanidine HCl 4 mg PO BEDTIME 03/19/19 Vortioxetine Hydrobromide [Trintellix] 20 mg PO DAILY 03/19/19 Patient Discharge Instructions: Please follow up with the primary care physician in 2-3 days. Please restart your treciba as you normally take it and continue the sliding scale insulin as you previously had been taking it. Return to the emergency room for worsening symptoms Diet: ADA Activity: Ad ronny Followup: Anali Mitchell MD [ACTIVE - CAN ADMIT] - (CALL TO SCHEDULE YOUR APPT) Boby Perdomo MD [ACTIVE - CAN ADMIT] - (CALL TO SCHEDULE YOUR APPT) Time spent managing pt's care (in minutes): 55
--- NOTE | 2019-03-25 02:17 | PN ---
Date of Progress Note: 03/24/2019 Chief Complaint: Acute kidney injury on chronic kidney disease. Patient was admitted to the [facility] because of generalized weakness. He has nonoliguric urine output. He was found to have acute kidn ey injury secondary to prerenal azotemia, complicated by acidosis and hyperkalemia. Electrolytes abn ormalities stabilized and BUN improved to 24, creatinine of 1.1. Patient received supplementation fo r hypomagnesemia. He was found to have hypernatremia secondary to poor p.o. intake, but this resolve d. Review of Systems: Denies fever or chills. Physical Examination: Lungs: Clear to auscultation bilaterally. Heart: S1, S2. Abdomen: Soft, benign. Extremities: No edema. Laboratory Data: Blood work: Sodium 144, potassium 3.9, chloride 111, CO2 of 27, BUN 20, creatinine 1.06, glucose 275, magnesium 2.3, calcium 8.5, phosphorus 3.2. Impression And Plan: 1.Acute kidney injury. Renal function has improved. Creatinine has gradually improved from 6.62 to 1.06. Continue adequate fluid intake. Avoid nonsteroidal anti-inflammatory medication. 2.Hypertension. Continue blood pressure medications. 3.Hypomagnesemia. Replacement ordered and monitor magnesium level. EB/MODL Voice ID: [id number] Report ID: [id number]
[2019-03-25 22:07] LABS: HBsAG Nonreactive (Nonreactive)
== END 2019-03-24 14:55 | disposition home or self-care (01) | DRG 871 ==
LOC: ER 14:40 → ERHOLD 19:52 → 3RD-ICU 21:19 → 4TH 03-23 16:40
PROVIDERS: ADMIT Hospitalist; ATTEND Hospitalist
PROC: 00JU3ZZ Inspection of Spinal Canal, Percutaneous Approach (ICD-10-PCS; principal; 2019-03-20)
DX: A41.9 Sepsis, unspecified organism (principal); G92 Toxic encephalopathy; E11.10 Type 2 diabetes mellitus with ketoacidosis without coma; N17.9 Acute kidney failure, unspecified; E87.1 Hypo-osmolality and hyponatremia; E87.0 Hyperosmolality and hypernatremia; R79.89 Other specified abnormal findings of blood chemistry; E87.6 Hypokalemia; E87.8 Other disorders of electrolyte and fluid balance, not elsewhere classified; E86.0 Dehydration; Z79.4 Long term (current) use of insulin; Z98.84 Bariatric surgery status; Z87.891 Personal history of nicotine dependence
CPT/HCPCS: 36415; 51702; 70450; 70551; 71045; 72148; 74176; 76377; 77003; 80048; 80053; 80069; 80076; 80307; 80329; 81003; 81015; 82010; 82140; 82550; 82553; 82570; 82805; 82947; 82962; 83520; 83605; 83690; 83735; 83930; 83970; 84132; 84145; 84156; 84443; 84484; 85025; 85610; 85730; 86021; 86038; 86140; 86160; 86225; 86317; 86403; 86430; 86704; 86706; 86850; 86900; 86901; 87040; 87070; 87086; 87088; 87340; 87389; 87522; 87804; 89050; 93005; 93306; 96361; 96365; 96366; 96375; 97112; 97116; 97161; 99291; 99292; J0696; J2310; J2405; J3370; J3475; J7030

== ENCOUNTER 2019-03-28 11:59 | Emergency (ER) | payer SELFPAY ==
[2019-03-28] MEDS ORDERED: PROPOFOL 1,000 MG/100 ML VIAL IV ONE (12:19)
[2019-03-28] MEDS ORDERED: NA CHLORIDE 0.9% 2,000 ML ONE (12:19)
[2019-03-28 12:43] LABS: Blood O2 Saturation 96.2 % (92-98.5)
[2019-03-28 12:59] LABS: Absolute Lymphocytes (CBC) 1.1 K/uL (0.7-4.9); Basophils % 0.3 % (0-1.3); Hematocrit 35.2 % (39.6-49.0); Lymphocytes % 13.4 % (15.3-44.8); RBC Red Blood Cell Count 3.91 M/uL (4.33-5.43)
--- NOTE | 2019-03-28 13:17 | ER ---
Nurse's Notes [facility] Name: Wilberto Liriano Age: 54 yrs Sex: Male : 1965 Arrival Date: 03/28/2019 Time: 12:08 Bed 3 Private MD: Diagnosis: Fever, unspecified;Type 1 diabetes mellitus;Acute respiratory failure;Altered mental status, unspecified Presentation: 03/28 12:08 Presenting complaint: EMS states: FOUND UNRESPONSIVE AND INCONTINENT BY MOTHER, bp INTUBATED BY EMS. FOR INTUBATION, EMS GAVE KETAMINE 180MG, VERSED 10MG, SUCC 90MG AND FENTANYL 150MCG. LAST SEEN NORMAL LAST PM. Transition of care: patient was not received from another setting of care. Onset of symptoms is unknown. Risk Assessment: Do you want to hurt yourself or someone else? Unable to obtain. Initial Sepsis Screen: Does the patient meet any 2 criteria? Temp <36.0*C (96.8*F)) or > 38.3*C (100.9*F). Altered Mental Status. Does the patient have a suspected source of infection? Yes: Productive cough/pneumonia If YES to both, name of provider notified: Alexy Moffett MD. Care prior to arrival: Oral intubation, IV initiated. 20 GA, in the right hand, Glucose check: 150. 12:08 Method Of Arrival: EMS: [facility] bp 12:08 Acuity: PAIGE 1 bp 12:08 Note EMS reports pt's O2 sat was 94 to 97% RA with inadequate breathing noted. EMS also aa5 reports hx of Sepsis a few months ago. Triage Assessment: 12:24 General: Appears distressed, comfortable, Behavior is unresponsive. Pain: Unable to use bp pain scale. Patient is intubated. EENT: No deficits noted. Neuro: Level of Consciousness is unresponsive, Oriented to none. Cardiovascular: No deficits noted. Respiratory: Breath sounds are clear bilaterally. GI: No signs and/or symptoms were reported involving the gastrointestinal system. : No signs and/or symptoms were reported regarding the genitourinary system. Derm: No deficits noted. Musculoskeletal: No deficits noted. Historical: - Allergies: 12:13 No Known Allergies; bp - Home Meds: 12:13 carvedilol 25 mg Oral tab 1 tab 2 times per day [Active]; ferrous gluconate 324 mg (38 bp mg iron) Oral tab daily [Active]; Trintellix 20 mg Oral tab 1 tab once daily [Active]; montelukast 10 mg Oral tab 1 tab once daily [Active]; tizanidine 4 mg Oral tab 1 tab nightly [Active]; gabapentin 600 mg Oral tab 1 tab twice a day [Active]; quetiapine 400 mg Oral tab 2 tab once daily [Active]; tamsulosin 0.4 mg Oral cp24 1 cap once daily [Active]; hydrocodone-acetaminophen 10-325 mg Oral tab 1 tab every 6 hours [Active]; methocarbamol 500 mg Oral tab 2 tabs twice a day [Active]; Novalog 5-10 ml per day [Active]; - PMHx: 12:13 Diabetes - IDDM; Hypertension; pancreas problems; bp - Immunization history:: Adult Immunizations unknown. - Social history:: Smoking status: unknown. - Ebola Screening: : No symptoms or risks identified at this time. Screenin:28 Abuse screen: Denies threats or abuse. Denies injuries from another. Nutritional bp screening: No deficits noted. Tuberculosis screening: No symptoms or risk factors identified. Fall Risk None identified. Assessment: 12:08 General: SEE TRIAGE NOTE. bp 13:00 Reassessment: ADMIT IN PROCESS. bp 14:00 Reassessment: PT TO CT WITH RT AND RN. bp 14:38 Reassessment: ADMIT CANCELLED, PT TO BE TRANSFERRED. bp 15:49 Reassessment: EMS AT B/S FOR TRANSPORT. bp Vital Signs: 12:08 BP 181 / 107; Pulse 92; Resp 18 A; Temp 100.9(R); Pulse Ox 100% on ETT vent; Weight bp 74.84 kg; 13:00 BP 161 / 106; Pulse 92; Resp 13; Pulse Ox 100% ; bp 14:00 BP 135 / 101; Pulse 83; Resp 13; Pulse Ox 99% ; bp 15:00 BP 110 / 90; Pulse 97; Resp 26; Pulse Ox 98% ; bp 15:50 BP 158 / 102; Pulse 78; Resp 17; Pulse Ox 100% ; bp ED Course: 12:08 Patient arrived in ED. bp 12:08 Arm band placed on. aa5 12:11 Triage completed. bp 12:20 Alexy Moffett MD is Attending Physician. nathan 12:24 Tyrell Dominguez, GLENIS is Primary Nurse. bp 12:27 Maintain EMS IV. Dressing intact. Good blood return noted. Site clean \T\ dry. Gauge \T\ bp site: 20 G R HAND. 12:28 Patient has correct armband on for positive identification. Placed in gown. Bed in low bp position. Call light in reach. Side rails up X2. 12:36 EKG done, by histotechnologist. reviewed by Alexy Moffett MD. at1 12:45 Nur cath inserted, using sterile technique, 18 Fr., by me, balloon inflated, to bp gravity drainage, urine specimen collected. Inserted saline lock: 18 gauge in left EJ, using aseptic technique. Blood collected. 13:16 Bridgette Vale MD is Hospitalizing Provider. nathan 13:38 add on labs drawn by nv and sent to lab. dh3 13:46 Urine collected: Nur catheter specimen, clear. dh3 14:14 XRAY Chest (1 view) In Process Unspecified. EDMS 14:25 CT Head Brain wo Cont In Process Unspecified. EDMS 14:38 \T\1415 initiated a transfer with Laura Groves at the [facility] transfer center/ eb \T\1435 connected the forming process worker food and nutrition services supervisor for [facility] with Dr. Moffett for patient transfer consultation./ \T\1438 administrative approval given by Laura Groves/ patient has been accepted to [facility] 7 south 3 bed 1/ Dr. Correia has accepted the patient in transfer/ report to be called to [phone]. 14:39 No provider procedures requiring assistance completed. Patient transferred, IV remains bp in place. Administered Medications: 12:30 Drug: NS 0.9% (30 ml/kg) 30 ml/kg Route: IV; Rate: bolus; Site: right hand; bp 15:49 Follow up: IV Status: Infusion continued upon transfer bp 12:30 Drug: Propofol 5 mcg/kg/min Route: IV; Rate: calculated rate; Site: left jugular; bp 15:47 Follow up: IV Status: Infusion continued upon transfer bp 13:30 Drug: Tylenol Suppository 650 mg Route: OH; bp 15:47 Follow up: Response: No adverse reaction bp 14:13 Drug: Pepcid 20 mg Route: IVP; Site: right hand; bp 15:48 Follow up: Response: No adverse reaction bp 14:13 Drug: Versed 5 mg Route: IVP; Site: right hand; bp 15:48 Follow up: Response: No adverse reaction bp 14:39 Drug: vancoMYCIN 2 grams Route: IVPB; Rate: calculated rate; Site: right hand; bp 15:48 Follow up: IV Status: Infusion continued upon transfer bp 14:39 Drug: Cefepime 2 grams Route: IVPB; Rate: 200 ml/hr; Infused Over: 30 mins; Site: right bp hand; 15:48 Follow up: IV Status: Infusion continued upon transfer bp Outcome: 13:17 Decision to Hospitalize by Provider. nathan 14:53 ER care complete, transfer ordered by . nathan 15:47 Transferred by ground EMS to [facility], Transfer form completed. bp 15:47 Condition: stable 15:47 Instructed on the need for transfer. 16:09 Patient left the ED. bp Signatures: Dispatcher [employer] EDMS Alexy oMffett MD MD cha Calderon, Audri, RN RN aa5 Estella Marinelli, assembly cleaner EKG Tat1 Wanda Ott 3 Tyrell Dominguez RN RN Kathie Bush Corrections: (The following items were deleted from the chart) 12:27 12:08 Initial Sepsis Screen: Does the patient meet any 2 criteria? Altered Mental bp Status. Does the patient have a suspected source of infection? No. Patient's initial sepsis screen is negative. bp 12:27 12:08 BP 181 / 107; Pulse 92bpm; Resp 18bpm; Assisted; Pulse Ox 100% ET / Ventilator; bp Temp 100.9F Rectal; aa5
--- NOTE | 2019-03-28 13:18 | EDPHYS ---
Physician Documentation [facility] Name: Wilberto Liriano Age: 54 yrs Sex: Male : 1965 Arrival Date: 03/28/2019 Time: 12:08 Bed 3 Private MD: ED Physician Alexy Moffett HPI: 03/28 13:08 This 54 yrs old Male presents to ER via EMS with complaints of Altered Mental nathan Status. 13:08 This 54 yrs old Male presents to ER via EMS with complaints of Altered Mental nathan Status. 13:08 The patient presents with confusion, decreased mental status. Onset: The nathan symptoms/episode began/occurred at an unknown time. Possible causes: unknown. Associated signs and symptoms: Pertinent positives: confusion. 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 Patient's baseline: Neuro: alert and fully oriented. The patient has experienced similar episodes in the past, several times. Historical: - Allergies: 12:13 No Known Allergies; bp - Home Meds: 12:13 carvedilol 25 mg Oral tab 1 tab 2 times per day [Active]; ferrous gluconate 324 mg (38 bp mg iron) Oral tab daily [Active]; Trintellix 20 mg Oral tab 1 tab once daily [Active]; montelukast 10 mg Oral tab 1 tab once daily [Active]; tizanidine 4 mg Oral tab 1 tab nightly [Active]; gabapentin 600 mg Oral tab 1 tab twice a day [Active]; quetiapine 400 mg Oral tab 2 tab once daily [Active]; tamsulosin 0.4 mg Oral cp24 1 cap once daily [Active]; hydrocodone-acetaminophen 10-325 mg Oral tab 1 tab every 6 hours [Active]; methocarbamol 500 mg Oral tab 2 tabs twice a day [Active]; Novalog 5-10 ml per day [Active]; - PMHx: 12:13 Diabetes - IDDM; Hypertension; pancreas problems; bp - Immunization history:: Adult Immunizations unknown. - Social history:: Smoking status: unknown. - Ebola Screening: : No symptoms or risks identified at this time. ROS: 13:11 Constitutional: Positive for fever. nathan 13:11 Unable to obtain ROS due to obtunded state. Exam: 13:11 Head/Face: Normocephalic, atraumatic. Eyes: Pupils equal round and reactive to light, nathan extra-ocular motions intact. Lids and lashes normal. Conjunctiva and sclera are non-icteric and not injected. Cornea within normal limits. Periorbital areas with no swelling, redness, or edema. ENT: Nares patent. No nasal discharge, no septal abnormalities noted. Tympanic membranes are normal and external auditory canals are clear. Oropharynx with no redness, swelling, or masses, exudates, or evidence of obstruction, uvula midline. Mucous membranes moist. Neck: Trachea midline, no thyromegaly or masses palpated, and no cervical lymphadenopathy. Supple, full range of motion without nuchal rigidity, or vertebral point tenderness. No Meningismus. Chest/axilla: Normal chest wall appearance and motion. Nontender with no deformity. No lesions are appreciated. Respiratory: Lungs have equal breath sounds bilaterally, clear to auscultation and percussion. No rales, rhonchi or wheezes noted. No increased work of breathing, no retractions or nasal flaring. Abdomen/GI: Soft, non-tender, with normal bowel sounds. No distension or tympany. No guarding or rebound. No evidence of tenderness throughout. Back: No spinal tenderness. No costovertebral tenderness. Full range of motion. Male : Normal genitalia with no discharge or lesions. Skin: Warm, dry with normal turgor. Normal color with no rashes, no lesions, and no evidence of cellulitis. MS/ Extremity: Pulses equal, no cyanosis. Neurovascular intact. Full, normal range of motion. Psych: Awake, alert, with orientation to person, place and time. Behavior, mood, and affect are within normal limits. 13:11 Cardiovascular: Rate: tachycardic, Rhythm: regular, Pulses: Pulses are 4+ in bilateral radial, brachial, femoral, popliteal, posterior tibial and and dorsalis pedis arteries.. Heart sounds: normal, Edema: is not appreciated, JVD: is not appreciated. Vital Signs: 12:08 BP 181 / 107; Pulse 92; Resp 18 A; Temp 100.9(R); Pulse Ox 100% on ETT vent; Weight bp 74.84 kg; 13:00 BP 161 / 106; Pulse 92; Resp 13; Pulse Ox 100% ; bp 14:00 BP 135 / 101; Pulse 83; Resp 13; Pulse Ox 99% ; bp 15:00 BP 110 / 90; Pulse 97; Resp 26; Pulse Ox 98% ; bp 15:50 BP 158 / 102; Pulse 78; Resp 17; Pulse Ox 100% ; bp MDM: 12:20 Patient medically screened. [facility] 13:12 Data reviewed: vital signs, nurses notes, lab test result(s), EKG, radiologic studies, [facility] CT scan, plain films. 03/28 12:28 Order name: Basic Metabolic Panel; Complete Time: 14:36 [facility] 03/28 12:28 Order name: CBC with Diff; Complete Time: 13:15 [facility] 03/28 12:28 Order name: LFT's; Complete Time: 14:36 [facility] 03/28 12:28 Order name: Magnesium; Complete Time: 14:36 [facility] 03/28 12:28 Order name: NT PRO-BNP; Complete Time: 14:36 [facility] 03/28 12:28 Order name: PT-INR; Complete Time: 14:36 [facility] 03/28 12:28 Order name: Troponin (emerg Dept Use Only); Complete Time: 14:36 [facility] 03/28 12:28 Order name: Blood Culture Adult (2) [facility] 03/28 12:28 Order name: Urine Culture [facility] 03/28 12:28 Order name: Procalcitonin; Complete Time: 14:36 [facility] 03/28 12:28 Order name: Lactate; Complete Time: 14:36 [facility] 03/28 12:32 Order name: ABG; Complete Time: 13:15 03/28 13:19 Order name: CK; Complete Time: 14:51 [facility] 03/28 13:19 Order name: Ckmb; Complete Time: 14:51 [facility] 03/28 12:28 Order name: XRAY Chest (1 view) [facility] 03/28 12:28 Order name: CT Head Brain wo Cont [facility] 03/28 13:19 Order name: Acetaminophen; Complete Time: 14:51 [facility] 03/28 13:19 Order name: ETOH Level; Complete Time: 14:36 [facility] 03/28 13:19 Order name: Ptt, Activated; Complete Time: 14:36 [facility] 03/28 13:19 Order name: Salicylate; Complete Time: 14:36 [facility] 03/28 13:19 Order name: Urine Drug Screen; Complete Time: 14:36 [facility] 03/28 13:50 Order name: Urine Dipstick--Ancillary (enter results); Complete Time: 15:38 [facility] 03/28 14:38 Order name: Influenza Screen (a \T\ B); Complete Time: 15:38 [facility] 03/28 12:28 Order name: EKG; Complete Time: 12:30 [facility] 03/28 12:28 Order name: Cardiac monitoring; Complete Time: 12:29 [facility] 03/28 12:28 Order name: EKG - Nurse/Tech; Complete Time: 12:29 [facility] 03/28 12:28 Order name: IV Saline Lock; Complete Time: 12:29 [facility] 03/28 12:28 Order name: Labs collected and sent; Complete Time: 12:30 [facility] 03/28 12:28 Order name: O2 Per Protocol; Complete Time: 12:30 [facility] 03/28 12:28 Order name: O2 Sat Monitoring; Complete Time: 12:29 [facility] 03/28 12:28 Order name: Urine Dipstick-Ancillary (obtain specimen); Complete Time: 13:47 [facility] Administered Medications: 12:30 Drug: NS 0.9% (30 ml/kg) 30 ml/kg Route: IV; Rate: bolus; Site: right hand; bp 15:49 Follow up: IV Status: Infusion continued upon transfer bp 12:30 Drug: Propofol 5 mcg/kg/min Route: IV; Rate: calculated rate; Site: left jugular; bp 15:47 Follow up: IV Status: Infusion continued upon transfer bp 13:30 Drug: Tylenol Suppository 650 mg Route: SD; bp 15:47 Follow up: Response: No adverse reaction bp 14:13 Drug: Pepcid 20 mg Route: IVP; Site: right hand; bp 15:48 Follow up: Response: No adverse reaction bp 14:13 Drug: Versed 5 mg Route: IVP; Site: right hand; bp 15:48 Follow up: Response: No adverse reaction bp 14:39 Drug: vancoMYCIN 2 grams Route: IVPB; Rate: calculated rate; Site: right hand; bp 15:48 Follow up: IV Status: Infusion continued upon transfer bp 14:39 Drug: Cefepime 2 grams Route: IVPB; Rate: 200 ml/hr; Infused Over: 30 mins; Site: right bp hand; 15:48 Follow up: IV Status: Infusion continued upon transfer bp Disposition: 03/28/19 14:53 Transfer ordered to [facility]. Diagnosis are Fever, unspecified, Type 1 diabetes mellitus, Acute respiratory failure, Altered mental status, unspecified. - Reason for transfer: Higher level of care. - Accepting physician is to [facility]. - Condition is Fair. - Problem is new. - Symptoms have improved. Signatures: Dispatcher [employer] EDMS Alexy Moffett MD MD cha Herrera, Deanna 3 Kvng Torrez RN RN 1 Tyrell Dominguez RN RN bp Corrections: (The following items were deleted from the chart) 13:29 13:17 Hospitalization Ordered by Bridgette Vale MD for Inpatient Admission. Preliminary 3 diagnosis is Altered mental status, unspecified; Fever, unspecified; Weakness; Respiratory failure, unspecified. Bed requested for Telemetry/MedSurg (Inpatient). Status is Inpatient Admission. Condition is Serious. Problem is new. Symptoms have improved. UTI on Admission? No. nathan 13:59 13:29 03/28/2019 13:17 Hospitalization Ordered by Bridgette Vale MD for Inpatient [facility] Admission. Preliminary diagnosis is Altered mental status, unspecified; Fever, unspecified; Weakness; Respiratory failure, unspecified. Bed requested for Intensive Care Unit. Status is Inpatient Admission. Condition is Serious. Problem is new. Symptoms have improved. UTI on Admission? No. dh3 14:51 13:59 03/28/2019 13:17 Hospitalization Ordered by Bridgette Vale MD for Inpatient [facility] Admission. Preliminary diagnosis is Altered mental status, unspecified; Fever, unspecified; Weakness; Respiratory failure, unspecified. Bed requested for Intensive Care Unit. Status is Inpatient Admission. Condition is Serious. Problem is new. Symptoms have improved. UTI on Admission? No. ja1 16:09 14:53 03/28/2019 14:53 Transfer ordered to [facility]. Diagnosis is bp Fever, unspecified; Type 1 diabetes mellitus; Acute respiratory failure; Altered mental status, unspecified. Reason for transfer: Higher level of care. Accepting physician is to [facility]. Condition is Fair. Problem is new. Symptoms have improved. nathan
[2019-03-28 13:25] LABS: ALT/SGPT 26 U/L (12-78); AST/SGOT 29 U/L (15-37); Albumin 3.3 g/dL (3.4-5.0); Alkaline Phosphatase 149 U/L (45-117); BUN Blood Urea Nitrogen 10 mg/dL (7-18); Bicarbonate 26 mmol/L (21-32); Bilirubin Direct < 0.1 mg/dL (0-0.2); Bilirubin Total 0.3 mg/dL (0.2-1.0); Glucose Level 170 mg/dL (74-106); Magnesium 1.9 mg/dL (1.8-2.4); NT PRO-BNP 638 pg/mL (<125); Potassium 4.6 mmol/L (3.5-5.1); Protein, Total 7.3 g/dL (6.4-8.2); Sodium Level 140 mmol/L (136-145); Troponin (Emerg Dept Use Only) < 0.02 ng/mL (0.0-0.045)
[2019-03-28 13:30] LABS: Protime INR 0.96
[2019-03-28] MEDS ORDERED: FAMOTIDINE 20 MG/2 ML VIAL IV ONE (13:55)
[2019-03-28] MEDS ORDERED: MIDAZOLAM HCL 2 MG/2 ML INJ ONE ×2 (13:55→15:54)
[2019-03-28] MEDS ORDERED: ACETAMINOPHEN 650MG/RECT SUPP PR ONE (13:55)
[2019-03-28] MEDS ORDERED: VANCOMYCIN 2 GM in NA CHLORIDE 0.9% 500 ML IVPB ONE (14:00)
[2019-03-28] MEDS ORDERED: CEFEPIME/SWI 2gm 2 GM/20 ML SYR IVP ONE (14:00)
[2019-03-28 14:04] LABS: Barbiturates NEGATIVE (NEGATIVE); Benzodiazepines POSITIVE (NEGATIVE); Cocaine NEGATIVE (NEGATIVE); METHAMPHETAM NEGATIVE (NEGATIVE); Methadone NEGATIVE (NEGATIVE); Opiates NEGATIVE (NEGATIVE); Phencyclidine NEGATIVE (NEGATIVE); THC Cannibis NEGATIVE (NEGATIVE)
[2019-03-28 14:28] LABS: CKMB Creatine Kinase MB 2.1 ng/mL (0.3-3.6); Creatine Phosphokinase 114 U/L (39-308)
[2019-03-28 14:57] LABS: Urine Blood NEGATIVE (NEG); Urine Glucose 2+ (NEG); Urine Protein NEGATIVE (NEG); Urine Specific Gravity 1.015 (1.005-1.030)
--- NOTE | 2019-03-28 20:21 | RAD REPORT ---
EXAM DESCRIPTION: CT HEAD/BRAIN W/O CONTRAST CLINICAL HISTORY: Found unresponsive, transient alteration of awareness. COMPARISON: None. TECHNIQUE: Axial non-contrast 5 mm thick images of the brain were obtained with sagittal and coronal reconstruction images generated and reviewed. This exam was performed according to our departmental dose-optimization program, which includes automated exposure control, adjustment of the mA and/or kV according to patient size and/or use of iterative reconstruction technique. FINDINGS: No intracranial hemorrhage is present. No cerebral edema findings. No mass, edema or shift of midline structures. Atrophy changes are present greater than typically seen for age. Patchy chronic ischemic changes are present. Ventricles are in proportion. Mastoid air cells and partially visualized paranasal sinuses are clear of acute disease. IMPRESSION: 1. No hemorrhage, mass, edema or other acute intracranial finding. 2. Atrophy changes are greater than typically seen for age.
[2019-03-28 20:22] VITALS: TEMP 100.9
[2019-03-28 20:28] VITALS: BP 158/102; O2SAT 100
--- NOTE | 2019-03-29 04:39 | EKG ---
Test Date: 2019-03-28 Test Time: 12:27:13 Network Control Supervisor: ZENA MEASUREMENT RESULTS: Intervals: Rate: 103 NE: 124 QRSD: 80 QT: 334 QTc: 437 [place]: P: 62 NE: 124 QRS: 27 T: 69 INTERPRETIVE STATEMENTS: Sinus tachycardia Abnormal ECG Compared to ECG 03/19/2019 14:41:25 no significant change from previous ECG Electronically Signed On 03-29-19 04:39:23 CDT by Victorino Peace
--- NOTE | 2019-03-29 11:10 | RAD REPORT ---
EXAM DESCRIPTION: Kaelat Single View03/28/2019 7:17 pm CLINICAL HISTORY: Cough IMPRESSION: An endotracheal tube has been inserted with its tip well above the aki. Lungs appear clear of acute infiltrate. Mild prominence of the mediastinum is stable from 2017 Heart is normal size
== END 2019-03-28 16:09 | disposition short-term general hospital (02) ==
LOC: ER 11:59
DX: J96.90 Respiratory failure, unspecified, unspecified whether with hypoxia or hypercapnia (principal); R50.9 Fever, unspecified; E10.9 Type 1 diabetes mellitus without complications; I10 Essential (primary) hypertension; Z79.4 Long term (current) use of insulin
CPT/HCPCS: 36415; 51702; 70450; 71045; 80048; 80076; 80307; 80320; 80329; 81003; 82550; 82553; 82805; 83605; 83735; 83880; 84145; 84484; 85025; 85610; 85730; 87040; 87086; 87088; 87804; 93005; 94002; 96365; 96366; 96367; 96368; 96375; 99291; 99292; J0692; J2250; J2704; J7030; J7040